=== PATIENT | female | born 1985 | race Caucasian/White ===

== ENCOUNTER 2022-05-31 16:00 | Emergency (ER) | payer OTHER, SELFPAY ==
[2022-05-31] VITALS (7 sets, daily range): BP systolic 160–191; BP diastolic 71–99; PULSE 89–107; RESP 14–22; TEMP 36.8; O2SAT 96–98; BMI 37.5
--- NOTE | ~2022-05-31 | XR_ITS ---
EXAMINATION: XR CHEST CLINICAL INFORMATION: Chest pain COMPARISON: None TECHNIQUE: 2 views of the chest were obtained. FINDINGS: The lungs are well expanded. There is no focal consolidation, edema, or effusion. No pneumothorax. The cardiomediastinal silhouette is within normal limits. No acute osseous abnormality. XR/XR chest 2V IMPRESSION: Clear lungs.
--- NOTE | 2022-05-31 16:05 | ED.GENADULT ---
HPI - General Adult General Chief complaint: Arrhythmia/Palpitations <LUIS Pickett - Last Filed: 05/31/22 17:29> Stated complaint: chest tightness <LUIS Pickett - Last Filed: 05/31/22 17:29> Time Seen by Provider: 05/31/22 16:04 <LUIS Pickett - Last Filed: 05/31/22 17:29> Source: patient and EMS <LUIS Pickett - Last Filed: 05/31/22 17:29> Mode of arrival: EMS <LUIS Pickett - Last Filed: 05/31/22 17:29> Limitations: no limitations <LUIS Pickett - Last Filed: 05/31/22 17:29> History of Present Illness HPI narrative: Patient is a 37 year old assigned female at with a history of anxiety and HTN presenting to the emergency department today with chest tightness. Patient states that she has had intermittent chest tightness and palpitations over the last few days and the episode today caused her to come in. Patient denies any dizziness, lightheadedness, abdominal pain, nausea, vomiting, fever, chills, blurry vision, double vision, loss of vision, difficulty breathing, shortness of breath, back pain, night sweats, pain with urination, increased urinary frequency, increased urinary urgency, blood in her urine or stool, syncope or a near syncopal episode, recent trauma or falls, bowel incontinence, bladder incontinence, bowel retention, bladder retention, or any other complaints at this time. <LUIS Pickett - Last Filed: 05/31/22 17:29> Severity: mild <LUIS Pickett - Last Filed: 05/31/22 17:29> Severity scale (1-10): 4 <LUIS Pickett - Last Filed: 05/31/22 17:29> Pain Consistency: intermittent <LUIS Pickett - Last Filed: 05/31/22 17:29> Relieving factors: none <LUIS Pickett - Last Filed: 05/31/22 17:29> Exacerbating factors: none <LUIS Pickett Last Filed: 05/31/22 17:29> Associated symptoms: chest pain <LUIS Pickett - Last Filed: 05/31/22 17:29> Treatments prior to arrival: none <LUIS Pickett Last Filed: 05/31/22 17:29> Related Data Home medications: Previous Rx's Medication Instructions Recorded ketorolac 10 mg tablet 10 mg PO TID PRN pain 5 days #15 05/31/22 tabs lorazepam 1 mg tablet (Ativan) 1 mg PO DAILY PRN anxiety #8 tabs 05/31/22 <LUIS Pickett - Last Filed: 05/31/22 17:29> Allergies/adverse reactions: Allergies Allergy/AdvReac Type Severity Reaction Status Date / Time sulfamethoxazole Allergy Unknown ITCHING Unverified 01/22/20 18:01 [From BACTRIM] trimethoprim [From BACTRIM] Allergy Unknown ITCHING Unverified 01/22/20 18:01 <LUIS Pickett Last Filed: 05/31/22 17:29> Review of Systems Constitutional: Constitutional: Reports no additional constitutional complaints, Denies chills, Denies fever(s) and Denies night sweats <LUIS Pickett Last Filed: 05/31/22 17:29> Eyes: Eyes: Reports no additional eye complaints, Denies blurry vision, Denies change in vision, Denies diplopia, Denies eye discharge, Denies loss of vision and Denies eye pain <LUIS Pickett Last Filed: 05/31/22 17:29> ENT: Denies dizziness <LUIS Pickett Last Filed: 05/31/22 17:29> Cardiovascular: Cardiovascular: Reports no additional cardiovascular complaints, Reports chest pain, Denies lightheadedness, Denies Loss of Consciousness, Reports palpitations and Denies dyspnea <LUIS Pickett Last Filed: 05/31/22 17:29> Respiratory: Respiratory: Reports no additional respiratory complaints and Denies dyspnea <LUIS Pickett Last Filed: 05/31/22 17:29> Gastrointestinal: Gastrointestinal: Reports no additional gastrointestinal complaints, Denies abdominal pain, Denies melena, Denies hematochezia, Denies change in bowel habits and Denies change in stool character <LUIS Pickett Last Filed: 01/25/23 17:29> Genitourinary: Genitourinary: Denies hematuria, Denies urinary frequency, Denies dysuria, Denies urinary incontinence, Denies urinary hesitancy and Denies urinary urgency <LUIS Pickett - Last Filed: 05/31/22 17:29> Musculoskeletal: Musculoskeletal: Reports no additional musculoskeletal complaints, Denies numbness and Denies tingling <LUIS Pickett - Last Filed: 05/31/22 17:29> Neurologic: Denies dizziness, Denies loss of vision, Denies numbness and Denies tingling <LUIS Pickett - Last Filed: 05/31/22 17:29> Psychiatric: Psychiatric: Reports no additional psychiatric complaints <LUIS Pickett - Last Filed: 05/31/22 17:29> Endocrine: Endocrine: Reports no additional endocrine complaints and Reports palpitations <LUIS Pickett - Last Filed: 05/31/22 17:29> Hematologic/Lymphatic: Hematologic/Lymphatic: Reports no additional hematologic/lymphatic complaints <LUIS Pickett - Last Filed: 05/31/22 17:29> Allergic/Immunologic: Allergic/Immunologic: Reports no additional allergic/immunologic complaints <LUIS Pickett - Last Filed: 05/31/22 17:29> [facility] Past Medical History Attestation statement: The following information was validated with the patient. <LUIS Pickett - Last Filed: 05/31/22 17:29> Source: old records reviewed and nursing notes reviewed <LUIS Pickett - Last Filed: 05/31/22 17:29> Social History Social History: Social History Advance Directives: No Advance Directives Information Provided: No <LUIS Pickett - Last Filed: 05/31/22 17:29> Physical Exam ED Vital Signs: Vital Signs - 24 hr 05/31/22 16:25 05/31/22 16:44 05/31/22 18:09 Temperature 98.2 F 98.2 F 98.2 F Pulse Rate 106 H 106 H 107 H Respiratory Rate 22 H 22 H 14 Blood Pressure 170/71 H 170/71 H 160/98 H Pulse Oximetry 98 98 97 Oxygen Delivery Method Room Air Room Air Room Air 05/31/22 22:31 05/31/22 23:03 Temperature 98.3 F Pulse Rate 105 H 89 Respiratory Rate 20 18 Blood Pressure 191/99 H 166/82 H Pulse Oximetry 98 96 Oxygen Delivery Method Room Air BMI result Body Mass Index 37.5 <LUIS Pickett Last Filed: 05/31/22 17:29> Vital Signs - 24 hr 05/31/22 16:25 05/31/22 16:44 05/31/22 18:09 Temperature 98.2 F 98.2 F 98.2 F Pulse Rate 106 H 106 H 107 H Respiratory Rate 22 H 22 H 14 Blood Pressure 170/71 H 170/71 H 160/98 H Pulse Oximetry 98 98 97 Oxygen Delivery Method Room Air Room Air Room Air 05/31/22 22:31 05/31/22 23:03 Temperature 98.3 F Pulse Rate 105 H 89 Respiratory Rate 20 18 Blood Pressure 191/99 H 166/82 H Pulse Oximetry 98 96 Oxygen Delivery Method Room Air BMI result Body Mass Index 37.5 <LUIS Cintron - Last Filed: 05/31/22 23:34> Const General: cooperative, no acute distress, alert and awake <LUIS Pickett - Last Filed: 05/31/22 17:29> Nutritional Appearance: well nourished <LUIS Pickett Last Filed: 05/31/22 17:29> Orientation/consciousness: patient oriented x3 <LUIS Pickett Last Filed: 05/31/22 17:29> Limitations: no limitations <LUIS Pickett Last Filed: 05/31/22 17:29> HENMT Head: Yes normal to inspection and Yes atraumatic <LUIS Pickett Last Filed: 05/31/22 17:29> Ears: hearing grossly normal bilaterally and external ears normal <LUIS Pickett Last Filed: 05/31/22 17:29> General nose exam: Normal external nose present, no nasal discharge noted and no epistaxis <LUIS Pickett Last Filed: 05/31/22 17:29> Face and sinus: Yes normal facial exam, No abrasion and No laceration <LUIS Pickett Last Filed: 05/31/22 17:29> Mouth: Normal oral and palatal mucosa present, no drooling and no muffled voice <Kalie Hauserbouchra PA - Last Filed: 05/31/22 17:29> Eyes General: appearance normal, both eyes and all related structures <Kalie Mendoza PA - Last Filed: 05/31/22 17:29> Periorbital: periorbital findings normal <Kalie Hauserbouchra PA - Last Filed: 05/31/22 17:29> Eyelids: Yes eyelids normal <Kalie Hauserbouchra PA - Last Filed: 05/31/22 17:29> Conjunctivae: conjunctivae normal <Kalie Hauserbouchra PA - Last Filed: 05/31/22 17:29> Pupils: Equal, round and reactive pupils present <Kaliejeannine Hauserbouchra PA - Last Filed: 05/31/22 17:29> EOM: EOMs intact bilaterally <Kaliejeannine Hauserbouchra PA - Last Filed: 05/31/22 17:29> Neck Neck: Yes normal visual inspection, Yes full ROM and Yes no lymphadenopathy <Kalie Hauserbouchra PA - Last Filed: 05/31/22 17:29> Chest Chest palpation & inspection: normal inspection of the chest <Kalie Reji PA - Last Filed: 05/31/22 17:29> Resp Effort & Inspection: normal respiratory effort and able to speak in complete sentences <Kaliejeannine Hauserbouchra PA - Last Filed: 05/31/22 17:29> Auscultation: clear to auscultation bilaterally <Kalie Reji PA - Last Filed: 05/31/22 17:29> Cardio Rate: regular rate <Kaliejeannine Hauserbouchra PA - Last Filed: 05/31/22 17:29> Rhythm: regular rhythm <Kalie Hauserbouchra PA - Last Filed: 05/31/22 17:29> GI Inspection: Yes normal to inspection <Kalie Reji PA - Last Filed: 05/31/22 17:29> Neuro General: patient oriented x3 and moves all extremities <Kalie Reji PA - Last Filed: 05/31/22 17:29> Cranial nerves: Yes Equal, round and reactive pupils present <Kalie Reji PA - Last Filed: 05/31/22 17:29> Cognition (Neuro): normal cognition <Kalie MendozaLUIS - Last Filed: 05/31/22 17:29> Motor exam (neuro): 5/5 motor strength present throughout <Kalie MendozaLUIS - Last Filed: 05/31/22 17:29> Sensory Exam: Normal double simultaneous stimulation for sensation <Kalie MendozaLUIS - Last Filed: 05/31/22 17:29> Coordination: [id number] test normal <Kalie HauserLUIS shook - Last Filed: 05/31/22 17:29> Extrem General: Yes normal to inspection, Yes full ROM and Yes capillary refill normal <Kalie MendozaLUIS - Last Filed: 05/31/22 17:29> Psych Appearance: grossly normal <Kalie HauserLUIS shook - Last Filed: 05/31/22 17:29> Mental Status: mental status grossly normal <Kalie HauserLUIS shook - Last Filed: 05/31/22 17:29> Affect: normal affect <Kaliejeannine HauserLUIS shook - Last Filed: 05/31/22 17:29> Attitude: cooperative <Kalie HauserLUIS shook - Last Filed: 05/31/22 17:29> Thought process: Normal thought process present <Kalie MendozaLUIS shook - Last Filed: 05/31/22 17:29> Thought content: Normal thought content present <Kalie HauserLUIS shook - Last Filed: 05/31/22 17:29> Insight: Good insight present (Psych) <Kalie MendozaLUIS shook - Last Filed: 05/31/22 17:29> Course Reevaluation(s) Reevaluation #1: CBC with no acute findings. Chemistry with no acute electrolyte abnormalities requiring intervention, troponin negative, EKG nonischemic it did show sinus tachycardia likely secondary to anxiety. UA without infection. COVID negative. Chest x-ray unremarkable. Patient consistently tachycardic will obtain D-dimer to rule out PE. <LUIS Cintron - Last Filed: 05/31/22 23:34> Time: 20:00 <LUIS Cintron - Last Filed: 05/31/22 23:34> Reevaluation #2: D-dimer 154, unlikely PE. I went to go speak to patient she tells me that she has been having increased anxiety lately, she tells me she is worried because she has not seen PCP for a while. Patient that she has never really been an anxious person but this past week she has been feeling anxious. Patient also reports that she has been belching a lot recently so she is not sure if this is really chest pain or if she is having some GI discomfort will give GI cocktail. <LUIS Cintron - Last Filed: 05/31/22 23:34> Time: 21:12 <LUIS Cintron - Last Filed: 05/31/22 23:34> Reevaluation #3: Patient feeling better heart rate now 88 bpm pressure improved 166/82. After Ativan patient tells me her symptoms subsided. I suspect this is primarily anxiety. I did discuss initiation of blood pressure meds with patient and with my attending, patient would like to wait to initiate blood pressure medications until she meets with the primary care provider, and my attending also recommends having her meet with a PCP and not initiating blood pressure medications at this time. Blood pressure and heart rate were likely elevated secondary to anxiety, patient does not or she has been feeling more anxious than usual. At this time patient will be discharged home advised to return with any new or worsening symptoms. Educated patient on diagnosis and treatment plan, answered all question, patient verbalizes understanding. At this time patient will be discharged home, advised to return with new or worsening symptoms. Educated on worrisome signs and symptoms and when to return. At this time I feel comfortable discharge home. <LUIS Cintron - Last Filed: 05/31/22 23:34> Time: 23:33 <LUIS Cintron - Last Filed: 05/31/22 23:34> Medications Administered Discontinued Medications Generic Name Dose Route Start Last Admin Trade Name Freq PRN Reason Stop Dose Admin Al Hydroxide/Mg Hydroxide 30 ml 05/31/22 21:20 05/31/22 22:29 Magnesium Hydrox/Alum Hydrox 30 Ml Oral.Susp PO 05/31/22 21:21 30 ml ONCE ONE Administration Belladonna Alkaloids/Phenobarbital 10 ml 05/31/22 21:20 05/31/22 22:30 Phenobarb/Hyoscy/Atropine/Scop 10 Ml Elixir PO 05/31/22 21:21 10 ml ONCE ONE Administration Ketorolac Tromethamine 30 mg 05/31/22 21:20 05/31/22 22:25 Ketorolac Tromethamine 15 Mg/Ml Vial IM 05/31/22 21:21 Not Given ONCE ONE Lorazepam 1 mg 05/31/22 21:20 05/31/22 22:29 Lorazepam 1 Mg Tablet PO 05/31/22 21:21 1 mg ONCE ONE Administration <LUIS Pickett - Last Filed: 05/31/22 17:29> Medications Administered Discontinued Medications Generic Name Dose Route Start Last Admin Trade Name Nimo PRN Reason Stop Dose Admin Al Hydroxide/Mg Hydroxide 30 ml 05/31/22 21:20 05/31/22 22:29 Magnesium Hydrox/Alum Hydrox 30 Ml Oral.Susp PO 05/31/22 21:21 30 ml ONCE ONE Administration Belladonna Alkaloids/Phenobarbital 10 ml 05/31/22 21:20 05/31/22 22:30 Phenobarb/Hyoscy/Atropine/Scop 10 Ml Elixir PO 05/31/22 21:21 10 ml ONCE ONE Administration Ketorolac Tromethamine 30 mg 05/31/22 21:20 05/31/22 22:25 Ketorolac Tromethamine 15 Mg/Ml Vial IM 05/31/22 21:21 Not Given ONCE ONE Lorazepam 1 mg 05/31/22 21:20 05/31/22 22:29 Lorazepam 1 Mg Tablet PO 05/31/22 21:21 1 mg ONCE ONE Administration <LUIS Cintron - Last Filed: 05/31/22 23:34> Medical Decision Making Medical Decision Making MDM Narrative: Patient is a 37 year old assigned female at with a history of HTN presenting to the emergency department today with intermittent palpitations and chest tightness. Patient's physical exam was unremarkable. Patient's blood work is pending. Patient's EKG was unremarkable. Patient's chest x-ray showed no acute process. I explained my physical exam findings as well as all test results to the patient. I answered all questions asked by the patient. Patient's clinical presentation is most consistent with anxiety vs. palpitations. Plan is to discharge the patient as long as the work up is negative. <LUIS Pickett - Last Filed: 05/31/22 17:29> Differential Diagnosis Differential Diagnoses: The differential diagnosis associated with the presentation includes <LUIS Pickett - Last Filed: 05/31/22 17:29> anxiety, chest pain, palpitations <LUIS Pickett - Last Filed: 05/31/22 17:29> Lab Data Result Diagrams: 05/31/22 17:21 05/31/22 17:21 <LUIS Pickett - Last Filed: 05/31/22 17:29> Labs: Lab Results 05/31/22 05/31/22 05/31/22 Range/Units 17:21 17:21 17:21 WBC 9.2 (4.8-10.8) X10*3/uL RBC 4.50 (4.20-5.50) X10*6/uL Hgb 13.4 (12.0-16.0) g/dl Hct 39.8 (37.0-47.0) % MCV 88.4 (80.0-98.0) fL MCH 29.8 (27.0-33.0) pg MCHC 33.7 (31.0-35.0) g/dl RDW 12.3 (11.0-16.0) % Plt Count 336 (160-400) X10*3/uL MPV 9.5 (9.4-12.3) fL Immature Gran % (Auto) 0.2 (0.0-0.4) % Neut % (Auto) 75.4 H (45-73) % Lymph % (Auto) 18.1 L (20-40) % [place] % (Auto) 5.2 (2-11) % Eos % (Auto) 0.8 (0-4) % Baso % (Auto) 0.3 (0-2) % Lymph # (Auto) 1.7 (1.2-4.9) X10*3/uL [place] # (Auto) 0.5 (0.1-1.2) X10*3/uL Eos # (Auto) 0.1 (0.0-0.4) X10*3/uL Baso # (Auto) 0.0 (0.0-0.2) X10*3/uL Abs Immat Gran (auto) 0.02 (0.00-0.03) X10*3/uL Absolute Neuts (auto) 6.9 (2.0-8.3) x10*3/uL Absolute Nucleated RBC 0.000 (0.0-0.012) X10*3/uL Nucleated RBC % (auto) 0.0 (0.0-0.2) /100WBC D-Dimer High Sensitivty NG/ML Sodium 137 (135-145) mmol/L Potassium 3.6 (3.3-5.1) mmol/L Chloride 101 (96-108) mmol/L Carbon Dioxide 24 (22-29) mmol/L Anion Gap 17 (12-20) BUN 9 (9-16) mg/dL Creatinine 0.78 (0.5-1.4) mg/dL Estim Creat Clear Calc 123.0 Estimated GFR > 60 Random Glucose 110 (60-115) mg/dL Calcium 9.7 (8.4-10.2) mg/dL Magnesium 2.0 (1.6-2.6) mg/dL Total Bilirubin 0.4 (0.0-1.0) mg/dL AST 16 (5-31) U/L ALT 21 (0-31) U/L Alkaline Phosphatase 100 (39-117) U/L Troponin I High Sens < 3.5 (<3.5-17.0) ng/L Total Protein 7.2 (6.5-8.0) g/dL Albumin 4.4 (3.5-5.0) g/dL TSH (0.32-4.0) uIU/mL Urine Color Urine Appearance Urine pH (5.0-9.0) Ur Specific [place] (1.005-1.025) Urine Protein (Neg-Trace) mg/dL Urine Glucose (UA) (Negative) mg/dL Urine Ketones (Negative) mg/dL Urine Blood (Negative) Urine Nitrite (Negative) Ur Leukocyte Esterase (Negative) Urine RBC (0-2) /HPF Urine WBC (0-5) /HPF Ur Squamous Epith Cells (0-2) /HPF Urine Bacteria (None Seen) Hyaline Casts (0-2) /LPF COVID-19 (MICHELE) (Negative) COVID-19 Clin Com Influenza Type A (MARY) (Negative) Influenza Type B (MARY) (Negative) Influenza A & B Note 05/31/22 05/31/22 05/31/22 Range/Units 17:21 17:21 17:21 WBC (4.8-10.8) X10*3/uL RBC (4.20-5.50) X10*6/uL Hgb (12.0-16.0) g/dl Hct (37.0-47.0) % MCV (80.0-98.0) fL MCH (27.0-33.0) pg MCHC (31.0-35.0) g/dl RDW (11.0-16.0) % Plt Count (160-400) X10*3/uL MPV (9.4-12.3) fL Immature Gran % (Auto) (0.0-0.4) % Neut % (Auto) (45-73) % Lymph % (Auto) (20-40) % [place] % (Auto) (2-11) % Eos % (Auto) (0-4) % Baso % (Auto) (0-2) % Lymph # (Auto) (1.2-4.9) X10*3/uL [place] # (Auto) (0.1-1.2) X10*3/uL Eos # (Auto) (0.0-0.4) X10*3/uL Baso # (Auto) (0.0-0.2) X10*3/uL Abs Immat Gran (auto) (0.00-0.03) X10*3/uL Absolute Neuts (auto) (2.0-8.3) x10*3/uL Absolute Nucleated RBC (0.0-0.012) X10*3/uL Nucleated RBC % (auto) (0.0-0.2) /100WBC D-Dimer High Sensitivty NG/ML Sodium (135-145) mmol/L Potassium (3.3-5.1) mmol/L Chloride (96-108) mmol/L Carbon Dioxide (22-29) mmol/L Anion Gap (12-20) BUN (9-16) mg/dL Creatinine (0.5-1.4) mg/dL Estim Creat Clear Calc Estimated GFR Random Glucose (60-115) mg/dL Calcium (8.4-10.2) mg/dL Magnesium (1.6-2.6) mg/dL Total Bilirubin (0.0-1.0) mg/dL AST (5-31) U/L ALT (0-31) U/L Alkaline Phosphatase (39-117) U/L Troponin I High Sens (<3.5-17.0) ng/L Total Protein (6.5-8.0) g/dL Albumin (3.5-5.0) g/dL TSH 2.28 (0.32-4.0) uIU/mL Urine Color Urine Appearance Urine pH (5.0-9.0) Ur Specific [place] (1.005-1.025) Urine Protein (Neg-Trace) mg/dL Urine Glucose (UA) (Negative) mg/dL Urine Ketones (Negative) mg/dL Urine Blood (Negative) Urine Nitrite (Negative) Ur Leukocyte Esterase (Negative) Urine RBC (0-2) /HPF Urine WBC (0-5) /HPF Ur Squamous Epith Cells (0-2) /HPF Urine Bacteria (None Seen) Hyaline Casts (0-2) /LPF COVID-19 (MICHELE) Negative (Negative) COVID-19 Clin Com See Note Influenza Type A (MARY) Negative (Negative) Influenza Type B (MARY) Negative (Negative) Influenza A & B Note See Note 05/31/22 05/31/22 Range/Units 17:21 19:46 WBC (4.8-10.8) X10*3/uL RBC (4.20-5.50) X10*6/uL Hgb (12.0-16.0) g/dl Hct (37.0-47.0) % MCV (80.0-98.0) fL MCH (27.0-33.0) pg MCHC (31.0-35.0) g/dl RDW (11.0-16.0) % Plt Count (160-400) X10*3/uL MPV (9.4-12.3) fL Immature Gran % (Auto) (0.0-0.4) % Neut % (Auto) (45-73) % Lymph % (Auto) (20-40) % [place] % (Auto) (2-11) % Eos % (Auto) (0-4) % Baso % (Auto) (0-2) % Lymph # (Auto) (1.2-4.9) X10*3/uL [place] # (Auto) (0.1-1.2) X10*3/uL Eos # (Auto) (0.0-0.4) X10*3/uL Baso # (Auto) (0.0-0.2) X10*3/uL Abs Immat Gran (auto) (0.00-0.03) X10*3/uL Absolute Neuts (auto) (2.0-8.3) x10*3/uL Absolute Nucleated RBC (0.0-0.012) X10*3/uL Nucleated RBC % (auto) (0.0-0.2) /100WBC D-Dimer High Sensitivty 154 NG/ML Sodium (135-145) mmol/L Potassium (3.3-5.1) mmol/L Chloride (96-108) mmol/L Carbon Dioxide (22-29) mmol/L Anion Gap (12-20) BUN (9-16) mg/dL Creatinine (0.5-1.4) mg/dL Estim Creat Clear Calc Estimated GFR Random Glucose (60-115) mg/dL Calcium (8.4-10.2) mg/dL Magnesium (1.6-2.6) mg/dL Total Bilirubin (0.0-1.0) mg/dL AST (5-31) U/L ALT (0-31) U/L Alkaline Phosphatase (39-117) U/L Troponin I High Sens (<3.5-17.0) ng/L Total Protein (6.5-8.0) g/dL Albumin (3.5-5.0) g/dL TSH (0.32-4.0) uIU/mL Urine Color Yellow Urine Appearance Clear Urine pH 7.5 (5.0-9.0) Ur Specific [place] <= 1.005 (1.005-1.025) Urine Protein Negative (Neg-Trace) mg/dL Urine Glucose (UA) Negative (Negative) mg/dL Urine Ketones Negative (Negative) mg/dL Urine Blood Negative (Negative) Urine Nitrite Negative (Negative) Ur Leukocyte Esterase Small (1+) H (Negative) Urine RBC 0-2 (0-2) /HPF Urine WBC 0-5 (0-5) /HPF Ur Squamous Epith Cells 0-2 (0-2) /HPF Urine Bacteria None Seen (None Seen) Hyaline Casts 0-2 (0-2) /LPF COVID-19 (MICHELE) (Negative) COVID-19 Clin Com Influenza Type A (MARY) (Negative) Influenza Type B (MARY) (Negative) Influenza A & B Note <LUIS Pickett - Last Filed: 05/31/22 17:29> Lab Results 05/31/22 05/31/22 05/31/22 Range/Units 17:21 17:21 17:21 WBC 9.2 (4.8-10.8) X10*3/uL RBC 4.50 (4.20-5.50) X10*6/uL Hgb 13.4 (12.0-16.0) g/dl Hct 39.8 (37.0-47.0) % MCV 88.4 (80.0-98.0) fL MCH 29.8 (27.0-33.0) pg MCHC 33.7 (31.0-35.0) g/dl RDW 12.3 (11.0-16.0) % Plt Count 336 (160-400) X10*3/uL MPV 9.5 (9.4-12.3) fL Immature Gran % (Auto) 0.2 (0.0-0.4) % Neut % (Auto) 75.4 H (45-73) % Lymph % (Auto) 18.1 L (20-40) % [place] % (Auto) 5.2 (2-11) % Eos % (Auto) 0.8 (0-4) % Baso % (Auto) 0.3 (0-2) % Lymph # (Auto) 1.7 (1.2-4.9) X10*3/uL [place] # (Auto) 0.5 (0.1-1.2) X10*3/uL Eos # (Auto) 0.1 (0.0-0.4) X10*3/uL Baso # (Auto) 0.0 (0.0-0.2) X10*3/uL Abs Immat Gran (auto) 0.02 (0.00-0.03) X10*3/uL Absolute Neuts (auto) 6.9 (2.0-8.3) x10*3/uL Absolute Nucleated RBC 0.000 (0.0-0.012) X10*3/uL Nucleated RBC % (auto) 0.0 (0.0-0.2) /100WBC D-Dimer High Sensitivty NG/ML Sodium 137 (135-145) mmol/L Potassium 3.6 (3.3-5.1) mmol/L Chloride 101 (96-108) mmol/L Carbon Dioxide 24 (22-29) mmol/L Anion Gap 17 (12-20) BUN 9 (9-16) mg/dL Creatinine 0.78 (0.5-1.4) mg/dL Estim Creat Clear Calc 123.0 Estimated GFR > 60 Random Glucose 110 (60-115) mg/dL Calcium 9.7 (8.4-10.2) mg/dL Magnesium 2.0 (1.6-2.6) mg/dL Total Bilirubin 0.4 (0.0-1.0) mg/dL AST 16 (5-31) U/L ALT 21 (0-31) U/L Alkaline Phosphatase 100 (39-117) U/L Troponin I High Sens < 3.5 (<3.5-17.0) ng/L Total Protein 7.2 (6.5-8.0) g/dL Albumin 4.4 (3.5-5.0) g/dL TSH (0.32-4.0) uIU/mL Urine Color Urine Appearance Urine pH (5.0-9.0) Ur Specific [place] (1.005-1.025) Urine Protein (Neg-Trace) mg/dL Urine Glucose (UA) (Negative) mg/dL Urine Ketones (Negative) mg/dL Urine Blood (Negative) Urine Nitrite (Negative) Ur Leukocyte Esterase (Negative) Urine RBC (0-2) /HPF Urine WBC (0-5) /HPF Ur Squamous Epith Cells (0-2) /HPF Urine Bacteria (None Seen) Hyaline Casts (0-2) /LPF COVID-19 (MICHELE) (Negative) COVID-19 Clin Com Influenza Type A (MARY) (Negative) Influenza Type B (MARY) (Negative) Influenza A & B Note 05/31/22 05/31/22 05/31/22 Range/Units 17:21 17:21 17:21 WBC (4.8-10.8) X10*3/uL RBC (4.20-5.50) X10*6/uL Hgb (12.0-16.0) g/dl Hct (37.0-47.0) % MCV (80.0-98.0) fL MCH (27.0-33.0) pg MCHC (31.0-35.0) g/dl RDW (11.0-16.0) % Plt Count (160-400) X10*3/uL MPV (9.4-12.3) fL Immature Gran % (Auto) (0.0-0.4) % Neut % (Auto) (45-73) % Lymph % (Auto) (20-40) % [place] % (Auto) (2-11) % Eos % (Auto) (0-4) % Baso % (Auto) (0-2) % Lymph # (Auto) (1.2-4.9) X10*3/uL [place] # (Auto) (0.1-1.2) X10*3/uL Eos # (Auto) (0.0-0.4) X10*3/uL Baso # (Auto) (0.0-0.2) X10*3/uL Abs Immat Gran (auto) (0.00-0.03) X10*3/uL Absolute Neuts (auto) (2.0-8.3) x10*3/uL Absolute Nucleated RBC (0.0-0.012) X10*3/uL Nucleated RBC % (auto) (0.0-0.2) /100WBC D-Dimer High Sensitivty NG/ML Sodium (135-145) mmol/L Potassium (3.3-5.1) mmol/L Chloride (96-108) mmol/L Carbon Dioxide (22-29) mmol/L Anion Gap (12-20) BUN (9-16) mg/dL Creatinine (0.5-1.4) mg/dL Estim Creat Clear Calc Estimated GFR Random Glucose (60-115) mg/dL Calcium (8.4-10.2) mg/dL Magnesium (1.6-2.6) mg/dL Total Bilirubin (0.0-1.0) mg/dL AST (5-31) U/L ALT (0-31) U/L Alkaline Phosphatase (39-117) U/L Troponin I High Sens (<3.5-17.0) ng/L Total Protein (6.5-8.0) g/dL Albumin (3.5-5.0) g/dL TSH 2.28 (0.32-4.0) uIU/mL Urine Color Urine Appearance Urine pH (5.0-9.0) Ur Specific [place] (1.005-1.025) Urine Protein (Neg-Trace) mg/dL Urine Glucose (UA) (Negative) mg/dL Urine Ketones (Negative) mg/dL Urine Blood (Negative) Urine Nitrite (Negative) Ur Leukocyte Esterase (Negative) Urine RBC (0-2) /HPF Urine WBC (0-5) /HPF Ur Squamous Epith Cells (0-2) /HPF Urine Bacteria (None Seen) Hyaline Casts (0-2) /LPF COVID-19 (MICHELE) Negative (Negative) COVID-19 Clin Com See Note Influenza Type A (MARY) Negative (Negative) Influenza Type B (MARY) Negative (Negative) Influenza A & B Note See Note 05/31/22 05/31/22 Range/Units 17:21 19:46 WBC (4.8-10.8) X10*3/uL RBC (4.20-5.50) X10*6/uL Hgb (12.0-16.0) g/dl Hct (37.0-47.0) % MCV (80.0-98.0) fL MCH (27.0-33.0) pg MCHC (31.0-35.0) g/dl RDW (11.0-16.0) % Plt Count (160-400) X10*3/uL MPV (9.4-12.3) fL Immature Gran % (Auto) (0.0-0.4) % Neut % (Auto) (45-73) % Lymph % (Auto) (20-40) % [place] % (Auto) (2-11) % Eos % (Auto) (0-4) % Baso % (Auto) (0-2) % Lymph # (Auto) (1.2-4.9) X10*3/uL [place] # (Auto) (0.1-1.2) X10*3/uL Eos # (Auto) (0.0-0.4) X10*3/uL Baso # (Auto) (0.0-0.2) X10*3/uL Abs Immat Gran (auto) (0.00-0.03) X10*3/uL Absolute Neuts (auto) (2.0-8.3) x10*3/uL Absolute Nucleated RBC (0.0-0.012) X10*3/uL Nucleated RBC % (auto) (0.0-0.2) /100WBC D-Dimer High Sensitivty 154 NG/ML Sodium (135-145) mmol/L Potassium (3.3-5.1) mmol/L Chloride (96-108) mmol/L Carbon Dioxide (22-29) mmol/L Anion Gap (12-20) BUN (9-16) mg/dL Creatinine (0.5-1.4) mg/dL Estim Creat Clear Calc Estimated GFR Random Glucose (60-115) mg/dL Calcium (8.4-10.2) mg/dL Magnesium (1.6-2.6) mg/dL Total Bilirubin (0.0-1.0) mg/dL AST (5-31) U/L ALT (0-31) U/L Alkaline Phosphatase (39-117) U/L Troponin I High Sens (<3.5-17.0) ng/L Total Protein (6.5-8.0) g/dL Albumin (3.5-5.0) g/dL TSH (0.32-4.0) uIU/mL Urine Color Yellow Urine Appearance Clear Urine pH 7.5 (5.0-9.0) Ur Specific [place] <= 1.005 (1.005-1.025) Urine Protein Negative (Neg-Trace) mg/dL Urine Glucose (UA) Negative (Negative) mg/dL Urine Ketones Negative (Negative) mg/dL Urine Blood Negative (Negative) Urine Nitrite Negative (Negative) Ur Leukocyte Esterase Small (1+) H (Negative) Urine RBC 0-2 (0-2) /HPF Urine WBC 0-5 (0-5) /HPF Ur Squamous Epith Cells 0-2 (0-2) /HPF Urine Bacteria None Seen (None Seen) Hyaline Casts 0-2 (0-2) /LPF COVID-19 (MICHELE) (Negative) COVID-19 Clin Com Influenza Type A (MARY) (Negative) Influenza Type B (MARY) (Negative) Influenza A & B Note <LUIS Cintron Last Filed: 05/31/22 23:34> Independent Interpretation I performed an independent interpretation of an: EKG <LUIS Pickett Last Filed: 05/31/22 17:29> Interpretation: Vent. Rate: 109 BPM ? ? Atrial Rate: 109 BPM P-R Int: 174 ms? QRS Dur: 094 ms QT Int: 344 ms ? ? ? P-R-T Axes: 037 014 019 degrees QTc Int: 463 ms ? Sinus tachycardia Otherwise normal ECG No previous ECGs available ? DD/ [id number] <LUIS Pickett Last Filed: 05/31/22 17:29> Radiology Impression Radiologist Impression: My interpretation is in agreement with the radiologist's impression of this imaging study. EXAMINATION: XR CHEST CLINICAL INFORMATION: Chest pain COMPARISON: None TECHNIQUE: 2 views of the chest were obtained. FINDINGS: The lungs are well expanded. There is no focal consolidation, edema, or effusion. No pneumothorax. The cardiomediastinal silhouette is within normal limits. No acute osseous abnormality. XR/XR chest 2V IMPRESSION: Clear lungs. Dictated By: Lacho Sahni MD Signed By: Electronically signed by Lacho Sahni MD 05/31/22 [id number] <LUIS Pickett Last Filed: 05/31/22 17:29> Independent Historian Clinical information obtained from an independent historian. History obtained from or confirmed by: EMS <LUIS Pickett Last Filed: 05/31/22 17:29> Critical Care Time Critical Care Time Critical Care Time: No <LUIS Cintron - Last Filed: 05/31/22 23:34> Discharge Plan Discharge Clinical Impression: Palpitations, Anxiety, High blood pressure <LUIS Pickett Last Filed: 05/31/22 17:29> Patient Disposition: Home, Self-Care <LUIS Pickett Last Filed: 05/31/22 17:29> Instructions: Heart Palpitations (DC) <LUIS Pickett Last Filed: 05/31/22 17:29> Additional Instructions: Follow up with your primary care provider. Return to the emergency department immediately if your symptoms worsen or if you develop any dizziness, shortness of breath, difficulty breathing, chest pain, blurry vision, loss of vision, nausea, vomiting, abdominal pain, fever, chills, back pain, or any other complaints. Toradol has been sent to your pharmacy, you tolerated this well in the department. Please take this as prescribed do not take this with ibuprofen, or other NSAIDs, do not mix this with alcohol. Side effects of this medication including increased risk for bleeding and possible kidney injury. Please check your blood pressure Sunday, Sunday, Sunday, write it down and should this with your primary care provider. <LUIS Pickett - Last Filed: 05/31/22 17:29> Prescriptions: New ketorolac 10 mg tablet 10 mg PO TID PRN (Reason: pain) 5 Days Qty: 15 0RF Rx Instructions: Tolerated IM in the department lorazepam [Ativan] 1 mg tablet 1 mg PO DAILY PRN (Reason: anxiety) Qty: 8 0RF <LUIS Pickett Last Filed: 05/31/22 17:29> Referrals: [facility] Cardiovascular Services [Provider Group] - 2 days [facility] Family Medicine [Provider Group] (Call to establish and follow up with a primary care provider. If you already have a primary care provider, please follow up with them. ) [facility] [Provider Group] (Call to establish and follow up with a primary care provider. If you already have a primary care provider, please follow up with them. ) [facility] [Provider Group] (Call to establish and follow up with a primary care provider. If you already have a primary care provider, please follow up with them. ) <LUIS Pickett - Last Filed: 05/31/22 17:29> Stand Alone Forms: Work/School Release <LUIS Pickett - Last Filed: 05/31/22 17:29> Print Language: Faroese <LUIS Pickett - Last Filed: 05/31/22 17:29>
--- NOTE | 2022-05-31 16:17 | ECG_ITS ---
Test Reason : CHEST TIGHTNESS Blood Pressure : / mmHG Vent. Rate : 109 BPM Atrial Rate : 109 BPM P-R Int : 174 ms QRS Dur : 094 ms QT Int : 344 ms P-R-T Axes : 037 014 019 degrees QTc Int : 463 ms Sinus tachycardia Otherwise normal ECG No previous ECGs available Referred By: Kalie Mendoza Electronically Signed By:JUAN CARLOS CARVALHO
[2022-05-31 17:27] LABS: MANUAL DIFF FLAG NO
[2022-05-31 17:31] LABS: Basophils Percent Auto 0.3 % (0-2); Eosinophils Absolute Auto 0.1 X10*3/uL (0.0-0.4); Eosinophils Percent Auto 0.8 % (0-4); Hematocrit 39.8 % (37.0-47.0); Hemoglobin 13.4 g/dl (12.0-16.0); Imm Gran Abs Auto 0.02 X10*3/uL (0.00-0.03); Imm Gran Pct Auto 0.2 % (0.0-0.4); Lymphocytes Absolute Auto 1.7 X10*3/uL (1.2-4.9); Lymphocytes Percent Auto 18.1 % (20-40); Mean Corpuscular HGB Conc 33.7 g/dl (31.0-35.0); Mean Corpuscular Hemoglobin 29.8 pg (27.0-33.0); Mean Corpuscular Volume 88.4 fL (80.0-98.0); Mean Platelet Volume 9.5 fL (9.4-12.3); Monocytes Absolute Auto 0.5 X10*3/uL (0.1-1.2); Monocytes Percent Auto 5.2 % (2-11); Neutrophils Absolute Auto 6.9 x10*3/uL (2.0-8.3); Neutrophils Percent Auto 75.4 % (45-73); Platelet Count 336 X10*3/uL (160-400); Red Cell Distribution Width 12.3 % (11.0-16.0); White Blood Count 9.2 X10*3/uL (4.8-10.8)
[2022-05-31 17:35] LABS: Appearance Urine Clear; Color Urine Yellow; Glucose Urine UA Negative (Negative); Leukocyte Esterase Urine Small (1+) (Negative); Nitrite Urine Negative (Negative); PH 7.5 (5.0-9.0); Specific Gravity - Urine <= 1.005 (1.005-1.025); UMIC TRIGGER UACC YES; Urine Blood Negative (Negative); Urine Ketones Negative (Negative); Urine Protein Negative (Neg-Trace)
[2022-05-31 17:41] LABS: COVID-19 Test Negative (Negative); IDNOW Serial# 55D5AD1C
[2022-05-31 17:47] LABS: IDNOW Serial# 9DB6401D; Influenza A Negative (Negative); Influenza B2 Negative (Negative)
[2022-05-31 17:55] LABS: Alanine Aminotransferase 21 U/L (0-31); Albumin Level 4.4 g/dL (3.5-5.0); Alkaline Phosphatase 100 U/L (39-117); Anion Gap 17 (12-20); Aspartate Amino Transferase 16 U/L (5-31); Bacteria Urine None Seen (None Seen); Bilirubin Total 0.4 mg/dL (0.0-1.0); Blood Urea Nitrogen 9 mg/dL (9-16); Calcium 9.7 mg/dL (8.4-10.2); Carbon Dioxide 24 mmol/L (22-29); Chloride 101 mmol/L (96-108); Estimated Glomerular Filt Rate > 60; Glucose Random 110 mg/dL (60-115); Hyaline Casts Urine 0-2 /LPF (0-2); Potassium 3.6 mmol/L (3.3-5.1); RBC Urine 0-2 /HPF (0-2); Sodium 137 mmol/L (135-145); Squamous Epithelial Cell Urine 0-2 /HPF (0-2); Total Protein 7.2 g/dL (6.5-8.0); UACC Culture Trigger YES; WBC Urine 0-5 /HPF (0-5)
[2022-05-31 18:01] LABS: Troponin-I High Sensitivity < 3.5 ng/L (<3.5-17.0)
[2022-05-31 18:09] LABS: TSH reflex Free T4 2.28 uIU/mL (0.32-4.0)
[2022-05-31 20:21] LABS: D Dimer High Sensitivity 154 NG/ML
[2022-05-31] MEDS: LORazepam 1 MG TABLET PO (22:29)
[2022-05-31] MEDS: Magnesium Hydrox/Alum Hydrox 30 ML ORAL.SUSP PO (22:29)
[2022-05-31] MEDS: PHENobarb/Hyoscy/Atropine/Scop 10 ML ELIXIR PO (22:30)
--- NOTE | 2022-05-31 22:38 | PC.NURSE ---
Pt tearful crying requesting to ask to speak to provider regarding results. Pt medicated per MAR. Provider at pt side providing comfort to pt.
== END 2022-05-31 23:58 | disposition home or self-care (01) ==
PROVIDERS: Physician Assistant; Physician Assistant Medical; Emergency Provider Emergency Medicine
DX: R00.2 Palpitations (principal); F41.9 Anxiety disorder, unspecified; I10 Essential (primary) hypertension; Z20.822 Contact with and (suspected) exposure to COVID-19; R00.0 Tachycardia, unspecified
CPT/HCPCS: 36415; 71046; 80053; 81001; 83735; 84443; 84484; 85025; 85379; 87086; 87502; 87635; 93005; 99283; 99285

== ENCOUNTER → 2022-06-19 08:43 | Outpatient (BNVA) | payer OTHER, SELFPAY | PROVIDERS: PCP Nurse Practitioner Family; Visit Provider Internal Medicine | DX: Z13.89 Encounter for screening for other disorder (principal) ==

== ENCOUNTER 2022-09-15 13:21 | Outpatient (REF) | payer OTHER, SELFPAY | END 2022-09-15 13:22 | disposition home or self-care (01) | LOC: HO.LAB 13:21 | PROVIDERS: Visit Provider Nurse Practitioner Family | DX: L02.91 Cutaneous abscess, unspecified (principal) | CPT/HCPCS: 87070; 87205 ==

== ENCOUNTER 2022-10-11 13:54 | Outpatient (REF) | payer OTHER, SELFPAY ==
--- NOTE | ~2022-10-11 | US_ITS ---
EXAMINATION: US CHEST CLINICAL INFORMATION: Cutaneous abscess upper back COMPARISON: Chest x-ray May 2022 TECHNIQUE: Grayscale and color imaging of the soft tissues of the upper midline back in between the scapula FINDINGS: There is a 2.4 x 2 x 0.2 cm complex subcutaneous fluid collection. This is hypoechoic with some internal echoes. This demonstrates a slightly thickened wall with increased wall vascularity. Appearance is suggestive of a small abscess. US/US chest IMPRESSION: Small subcutaneous abscess measuring 2.4 x 2 x 0.2 cm.
== END 2022-10-11 13:55 | disposition home or self-care (01) ==
LOC: HO.HMGCX 13:54
PROVIDERS: PCP Nurse Practitioner Family; Visit Provider Nurse Practitioner Family
DX: L02.91 Cutaneous abscess, unspecified (principal)
CPT/HCPCS: 76604

== ENCOUNTER → 2022-10-24 08:56 | Outpatient (BNVA) | payer OTHER, SELFPAY | PROVIDERS: PCP Nurse Practitioner Family; Referring Provider Nurse Practitioner Family; Visit Provider Surgery ==

== ENCOUNTER 2022-11-23 09:31 | Day surgery (SDC) | payer OTHER, SELFPAY ==
[2022-11-20 15:05] VITALS: BMI 46.0
--- NOTE | 2022-11-22 09:58 | HO.ANESPROP2 ---
Documented by User: Kirsten Nam NP 11/22/22 09:58 HPI - Anesthesia Eval Consult details Narrative: 37yo F for Excision of Large Mid Back Sabaceous Cyst PMFSH Active Problems Active Problems: All Active Problems (Updated 10/06/22 @ 16:15 by Lottie Trevino CNP) Palpitations (Acute) Abscess (Acute) Oral thrush (Acute) Sebaceous cyst (Acute) Essential hypertension (Acute) Past Medical History Medical History Back abscess Essential hypertension Family History Family History Mother HTN (hypertension) Irregular heart beat Diabetes Father Heart attack Brother Brain cancer Paternal Grandfather Heart disease Paternal Grandmother Breast cancer Surgical History Surgical History (Updated 11/20/22 @ 15:04 by Riya Irwin RN) [place] teeth extracted Social History Social History Housing: House Alcohol intake: current Alcohol intake frequency: a few times a week Alcohol type: beer Patient Tobacco Use Status: Never used Tobacco e-Cigarette/Vaping Use: Never Used service: No Current occupational status: employed 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563 kg Pertinent Lab Results Pertinent Lab Results: Laboratory Tests 05/31/22 05/31/22 17:21 17:21 WBC 9.2 Hgb 13.4 Hct 39.8 Plt Count 336 Sodium 137 Potassium 3.6 Chloride 101 Carbon Dioxide 24 BUN 9 Creatinine 0.78 Narrative Narrative: EKG 05/2022 Vent. Rate : 109 BPM ? ? Atrial Rate : 109 BPM ?? P-R Int : 174 ms? QRS Dur : 094 ms ? ? QT Int : 344 ms ? ? ? P-R-T Axes : 037 014 019 degrees ?? QTc Int : 463 ms ? Sinus tachycardia Otherwise normal ECG No previous ECGs available Assessment and Plan Assessment Anesthesia Assessment: Chart Reviewed Documented by User: Isaias Coleman MD 11/23/22 09:33 [facility] Past Medical History Medical History Back abscess Essential hypertension Family History Family History Mother HTN (hypertension) Irregular heart beat Diabetes Father Heart attack Brother Brain cancer Paternal Grandfather Heart disease Paternal Grandmother Breast cancer Family history of problems with anesthesia: No Surgical History Surgical History (Updated 11/20/22 @ 15:04 by Riya Irwin RN) [place] teeth extracted History of Problems with Anesthesia: No Social History Social History Housing: House Alcohol intake: current Alcohol intake frequency: a few times a week Alcohol type: beer Patient Tobacco Use Status: Never used Tobacco e-Cigarette/Vaping Use: Never Used service: No Current occupational status: employed 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 Cognitive needs: No Hearing needs: No Vision needs: No Meds Allergies Allergy/AdvReac Type Severity Reaction Status Date / Time sulfamethoxazole Allergy Intermediate ITCHING Verified 11/20/22 15:02 [From BACTRIM] trimethoprim [From BACTRIM] Allergy Intermediate ITCHING Verified 11/20/22 15:02 Home Medications Medication Instructions Recorded Confirmed Last Taken Type fluticasone propionate 50 1 spray intranasal DAILY 06/19/22 11/20/22 Unknown History mcg/actuation nasal spray,suspension Exam Airway Mallampati Class: III TM Dist: >3cm Neck ROM: Limited Heart: rrr Lungs: cta Assessment and Plan Assessment Anesthesia Assessment: Anesthesia Plan Discussed Final Anesthetic Review Family History of Problems with Anesthesia: No History of Problems with Anesthesia: No NPO: Yes ASA Class: III Final Preanesthetic Review: No Changes in Pt Med Stat, Meds/Allgs Chart Reviewed, Consent Obtained/Reviewed and Anes Risks/Benef Reviewed Patient Risk: Intermediate Procedure Risk: Low Anesthetic Plan Anesthetic Plan: MAC: and Agree w/ Assess. and Plan Disposition: Standard PACU
--- NOTE | 2022-11-22 10:54 | MHC.SHP ---
Pre-Procedural Eval Section A Date of Service: 11/22/22 The patient is an INPATIENT: No Changes since office visit: No Cold of Flu in the past 2 weeks, No New Medical Problems, No Changes in Medication and No Patient answered all questions The History & Physical has been completed within 30 days and I have reviewed it.: Yes Section B Chief Complaint: Sebaceous cyst Allergies: Allergies Allergy/AdvReac Type Severity Reaction Status Date / Time sulfamethoxazole Allergy Intermediate ITCHING Verified 11/20/22 15:02 [From BACTRIM] trimethoprim [From BACTRIM] Allergy Intermediate ITCHING Verified 11/20/22 15:02 Plan I have reviewed the history and physical and performed a pertinent physical examination on my patient. No changes have occurred unless specified. Time Spent With Patient Time: Total time managing care of this patient today ____ minutes.
[2022-11-23 09:50] VITALS: BP 178/101; PULSE 108; RESP 16; TEMP 37.7; O2SAT 98; BMI 44.6
[2022-11-23 10:00] LABS: UPreg QC Valid YES; Urine Pregnancy NEGATIVE (NEGATIVE)
[2022-11-23 10:07] VITALS: BP 178/99
[2022-11-23] MEDS: Lactated Ringers 1,000 ML 100 ML IVCONT (10:07)
[2022-11-23 11:26] VITALS: BP 133/98; PULSE 101; RESP 14; TEMP 37.2; O2SAT 96
--- NOTE | 2022-11-23 11:36 | W.PM.OPN ---
Operative Note Operative Note Date of Service: 11/23/22 Narrative: Preoperative diagnosis: [] Large sebaceous cyst mid back Postop diagnosis: [] Same Procedure [] excision large sebaceous cyst mid back Surgeon: [] Zeeshan [employer] Lecturer: [] LUIS Cage Type of Anesthesia: [] MAC Indication for surgery: [] Final specimen measured approximately 8 x 4 cm consistent with a very large sebaceous cyst of mid back Findings: [] Patient brought to the operating room, placed on operating table supine position, after adequate level of MAC was induced, patient was placed in right lateral decubitus position. Mid back was prepped and draped in usual sterile fashion the incision site was infiltrated with 0.5% Marcaine/1% lidocaine. A transverse by elliptical incision encompassing all the cyst and its punctum was carried down through skin, subcutaneous tissue, and undermined using Bovie. Specimen sent to pathology with dimensions as described above. Superior and inferior skin flaps were developed using Bovie and wound was irrigated, secured hemostasis, and closed using interrupted inverted dermal 3-0 Vicryl sutures followed by Steri-Strips and sterile dressings. Sponge, needle, instrument counts reported to be correct. Patient tolerated the procedure well and emerged from anesthesia stable condition. EBL minimal
[2022-11-23 11:41] VITALS: BP 168/99; PULSE 89; RESP 16; TEMP 36.8; O2SAT 98
[2022-11-23 11:56] VITALS: BP 149/81; PULSE 85; RESP 14; TEMP 36.8; O2SAT 99
== END 2022-11-23 13:10 | disposition home or self-care (01) ==
PROVIDERS: Nurse Practitioner; PCP Nurse Practitioner Family; Visit Provider Surgery
PROC: (CPT 11406; principal; 2022-11-23 11:50)
DX: L72.3 Sebaceous cyst (principal); I10 Essential (primary) hypertension; Z88.2 Allergy status to sulfonamides
CPT/HCPCS: 11406; 81025; 88304; J0690; J1100; J2250; J2405; J2795; J3010

== ENCOUNTER → 2022-11-23 09:31 | Outpatient (BNV) | payer OTHER, SELFPAY | PROVIDERS: PCP Nurse Practitioner Family; Visit Provider Surgery | DX: L72.3 Sebaceous cyst (principal) | CPT/HCPCS: 11406 ==

== ENCOUNTER 2022-12-01 09:57 | Outpatient (AMB) | payer OTHER, SELFPAY ==
--- NOTE | 2022-12-01 10:03 | A.OFFVIS_ITS ---
Intake Vital Signs 12/01/22 10:08 Weight 264 lb BP 167/93 H Blood Pressure Location Rt radial Position Sitting Pulse 90 Intake Visit Reasons: S/P exc. Lg mid back sebaceous cyst Intake Note: Patient here s/o excision on Lt mid back. Reports incision healing well. Denies pain or discomfort. [employer] Required: No Accompanied by: Self / Same As Patient Allergies sulfamethoxazole [From BACTRIM] Allergy (Intermediate, Verified 12/01/22 10:10) itching, itchy mouth trimethoprim [From BACTRIM] Allergy (Intermediate, Verified 12/01/22 10:10) itching, itchy mouth HPI HPI Comments History of Present Illness Details Patient presents for follow-up. She has no wound issues or complaints. Pathology is benign. 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 Assessment & Plan Assessment & Plan (1) Sebaceous cyst: Code(s): L72.3 - Sebaceous cyst Plan Patient has been given very specific local instructions including avoiding strenuous activity the next few weeks time. She will otherwise follow up p.r.n.. Coding Level of Care Code Global (90525) Diagnoses Sebaceous cyst L72.3
[2022-12-01 10:08] VITALS: BP 167/93; PULSE 90
== END 2022-12-01 10:14 | disposition home or self-care (01) ==
PROVIDERS: PCP Nurse Practitioner Family; Visit Provider Surgery
DX: L72.3 Sebaceous cyst (principal)
CPT/HCPCS: 99024

== ENCOUNTER → 2022-12-01 09:57 | Outpatient (BNVA) | payer OTHER, SELFPAY | PROVIDERS: PCP Nurse Practitioner Family; Visit Provider Surgery ==

== ENCOUNTER 2022-12-15 12:24 | Outpatient (AMB) | payer OTHER, SELFPAY ==
[2022-12-15 12:26] VITALS: BP 144/90; PULSE 91; RESP 12; TEMP 36.5; O2SAT 99; BMI 46.0
--- NOTE | 2022-12-15 12:26 | A.OFFPC_ITS ---
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 Accompanied by: Self / Same As Patient Allergies sulfamethoxazole [From BACTRIM] Allergy (Intermediate, Verified 12/15/22 12:46) itching, itchy mouth trimethoprim [From BACTRIM] Allergy (Intermediate, Verified 12/15/22 12:46) itching, itchy mouth Medication List - Last Reconciled 12/15/22 by Lottie Trevino CNP amlodipine 10 mg PO DAILY 30 days fluticasone propionate 50 mcg/actuation 1 spray intranasal DAILY Tobacco use date assessed: 06/29/22 Dental Screening Dental Screen Date: 12/15/22 Did you have a dental visit in the last 12 months?: No Did you have a dental problem in the last 6 months where you did not have access to dental care?: No Was dental information given to patient?: Patient has dentist HPI HPI Comments History of Present Illness Details 37-year-old female presents for hypertension follow-up. She is on amlodipine 10 mg daily which she notes she has been taking as prescribed. She notes she has been maintaining a low sodium diet. No acute symptoms today. She notes she had sebaceous cyst removed from her upper back 2 weeks ago. She is concerned about diabetes due to family history. FMH: Father: Diabetes, heart disease Mother: Diabetes, [facility]N [facility] Medical History Back abscess Essential hypertension Surgical History History of removal of cyst [place] teeth extracted Family History Mother HTN (hypertension) Irregular heart beat Diabetes Father Heart attack Brother Brain cancer Paternal Grandfather Heart disease Paternal Grandmother Breast cancer Social History Housing: House Alcohol intake: current Alcohol intake frequency: a few times a week Alcohol type: beer Patient Tobacco Use Status: Never used Tobacco e-Cigarette/Vaping Use: Never Used service: No Current occupational status: employed Current occupation: [employer] Cognitive needs: No Hearing needs: No Vision needs: No Questionnaire Thrive Questionnaire Date Thrive assessed: 06/29/22 AUBREY-7 AMB Questionnaire AUBREY-7 Date AUBREY - 7 assessed: 06/29/22 Source: Developed by Drs. Gold Espinosa, Naheed Carrasquillo, Joe Brush and colleagues, with an educational kelly from [employer]. Review of Systems Const Details: Const Denies chills, Denies fatigue, Denies fever(s), Denies headache(s) and Denies weakness ENT Denies dizziness and Denies headache(s) Card Denies chest pain, Denies lightheadedness, Denies dyspnea and Denies other (Palpitations) Resp Denies cough, Denies dyspnea, Denies wheezing and Denies other ( shortness of breath) GI Denies abdominal pain, Denies melena, Denies hematochezia, Denies change in bowel habits, Denies dyspepsia and Denies nausea Denies hematuria and Denies dysuria Musc Denies abnormal gait, Denies myalgias, Denies arthralgias, Denies numbness and Denies tingling Skin/Breast Denies rash, Denies unusual bruising and Denies wounds Neuro Denies abnormal gait, Denies dizziness, Denies headache(s), Denies memory loss, Denies numbness, Denies Sensory deficit (Neuro), Denies tingling and Denies weakness Psych Denies anxiety, Denies depression, Denies memory loss Endo Denies cold intolerance, Denies fatigue, Denies heat intolerance, Denies polydipsia and Denies polyuria Aller/Immun Denies wheezing Physical exam (Primary Care) Vital Signs: Last Vital Signs Temp 97.7 F 12/15/22 12:26 Pulse 91 12/15/22 12:26 Resp 12 12/15/22 12:26 BP 144/90 H 12/15/22 12:26 Pulse Ox 99 12/15/22 12:26 Oxygen Delivery Method Room Air 12/15/22 12:26 BMI result Body Mass Index 46.0 Tobacco/Smoking Status: Tobacco use Status Tobacco use date assessed 06/29/22 12/15/22 12:37 Patient Tobacco Use Status Never used Tobacco 12/15/22 12:37 e-Cigarette/Vaping Use Never Used 12/15/22 12:37 Thrive Assessment: Date of Thrive Assessment Date Thrive assessed 06/29/22 12/15/22 12:37 Const Other: General: no acute distress and well developed Nutritional Appearance: well nourished Orientation/consciousness: patient oriented x3 HENMT Head: Yes normocephalic and Yes atraumatic Eyes General: appearance normal, both eyes and all related structures Pupils: Equal, round and reactive pupils present EOM: EOMs intact bilaterally Resp Effort & Inspection: normal respiratory effort Auscultation: clear to auscultation bilaterally Cardio Rate: regular rate Rhythm: regular rhythm Heart sounds: S1 normal heart sound present, S2 normal heart sound present, no gallops, no murmurs and no rubs GI Palpation (GI): No Abdominal aortic bruit present, Soft to palpation, nontender, No hepatosplenomegaly present and No Rebound tenderness present Auscultation: normal bowel sounds General: Yes no CVA tenderness Back/Spine/Pelvis Back: no CVA tenderness Cervical Spine: cervical ROM normal and No Cervical spine tenderness Thoracic/Lumbar Spine: thoraco-lumbar ROM normal, No pain with thoraco-lumbar ROM, No thoracic spinal tenderness and No lumbar spinal tenderness Extrem General: Yes normal to inspection, No edema and No calf tenderness Skin General: warm and dry. Normal skin color. Normal skin turgor Lesions: no lesions Rashes: no rashes Trauma: no lacerations or abrasions Wounds: no wounds Nails: normal Neuro General: patient oriented x3, gait normal and no focal neuro deficit Cranial nerves: Yes Equal, round and reactive pupils present Cognition (Neuro): normal cognition Gait exam (Neuro): Normal gait present Sensory Exam: No Sensory deficit (Neuro) Psych Appearance: grossly normal Affect: normal affect Attitude: cooperative Thought process: Normal thought process present Assessment and Plan Assessment & Plan (1) Essential hypertension: Code(s): I10 - Essential (primary) hypertension Plan: Resting blood pressure is 160/100, above goal of less than 140/90 Metoprolol ordered. Take as prescribed Continue to take amlodipine as prescribed Low-sodium diet encouraged Labs ordered. Advised to fast for 10-12 hours and get blood work done before next visit Follow-up in 1 week with the nurse for blood pressure check and 1 month with PCP Return sooner with concerns or symptoms Verbalized understanding and agreed with treatment plan. (2) Morbid obesity with body mass index (BMI) of 40.0 to 49.9: Code(s): E66.01 - Morbid (severe) obesity due to excess calories Plan: Current BMI is 46.0 Healthy diet and routine exercise encouraged Will refer to nutrition/dietitian or weight management per patient request Follow-up with concerns or symptoms Verbalized understanding and agreed with treatment plan. Orders: Orders Comprehensive Dawson. Panel Fast Today I10 - Essential (primary) hypertension Lipid Panel Today I10 - Essential (primary) hypertension TSH reflex Free T4 Today I10 - Essential (primary) hypertension Complete Blood Count Auto Diff Today I10 - Essential (primary) hypertension UA CC w/rflx Micro + Cult Today I10 - Essential (primary) hypertension Medications: New metoprolol tartrate 50 mg PO DAILY 30 days 30 tabs 3RF Coding Level of Care Code Est Pt Level 3 (18397) Diagnoses Essential hypertension I10 Morbid obesity with body mass index (BMI) of 40.0 to 49.9 E66.01 Time Spent (min) 25
[2022-12-15 12:54] VITALS: BP 160/100
== END 2022-12-15 13:07 | disposition home or self-care (01) ==
PROVIDERS: PCP Nurse Practitioner Family; Visit Provider Nurse Practitioner Family
DX: I10 Essential (primary) hypertension (principal); E66.01 Morbid (severe) obesity due to excess calories; Z68.42 Body mass index [BMI] 45.0-49.9, adult
CPT/HCPCS: 99213

== ENCOUNTER 2023-01-03 08:51 | Outpatient (REF) | payer OTHER, SELFPAY ==
[2023-01-03 11:38] LABS: MANUAL DIFF FLAG NO
[2023-01-03 11:50] LABS: Appearance Urine Cloudy; Color Urine Dark Yellow; Glucose Urine UA Negative (Negative); Leukocyte Esterase Urine Small (1+) (Negative); Nitrite Urine Negative (Negative); PH 6.5 (5.0-9.0); UMIC TRIGGER UACC YES; Urine Blood Large (3+) (Negative); Urine Ketones Negative (Negative); Urine Protein Trace mg/dL (Neg-Trace)
[2023-01-03 11:54] LABS: Bacteria Urine None Seen (None Seen); Hyaline Casts Urine 0-2 /LPF (0-2); RBC Urine >20 /HPF (0-2); Squamous Epithelial Cell Urine 0-2 /HPF (0-2); UACC Culture Trigger YES
[2023-01-03 11:54] LABS: Basophils Percent Auto 0.4 % (0-2); Eosinophils Absolute Auto 0.3 X10*3/uL (0.0-0.4); Eosinophils Percent Auto 4.8 % (0-4); Hematocrit 40.6 % (37.0-47.0); Hemoglobin 13.4 g/dl (12.0-16.0); Imm Gran Abs Auto 0.02 X10*3/uL (0.00-0.03); Imm Gran Pct Auto 0.4 % (0.0-0.4); Lymphocytes Absolute Auto 1.4 X10*3/uL (1.2-4.9); Lymphocytes Percent Auto 27.7 % (20-40); Mean Corpuscular Hemoglobin 29.7 pg (27.0-33.0); Monocytes Absolute Auto 0.4 X10*3/uL (0.1-1.2); Monocytes Percent Auto 7.9 % (2-11); Neutrophils Absolute Auto 3.1 x10*3/uL (2.0-8.3); Neutrophils Percent Auto 58.8 % (45-73); Platelet Count 335 X10*3/uL (160-400); Red Blood Count 4.51 X10*6/uL (4.20-5.50); Red Cell Distribution Width 12.9 % (11.0-16.0); White Blood Count 5.2 X10*3/uL (4.8-10.8)
[2023-01-03 12:14] LABS: Alanine Aminotransferase 14 U/L (0-31); Albumin Level 4.2 g/dL (3.5-5.0); Alkaline Phosphatase 89 U/L (39-117); Anion Gap 12 (12-20); Aspartate Amino Transferase 13 U/L (5-31); Bilirubin Total 0.6 mg/dL (0.0-1.0); Blood Urea Nitrogen 11 mg/dL (9-16); Calcium 9.7 mg/dL (8.4-10.2); Carbon Dioxide 26 mmol/L (22-29); Chloride 106 mmol/L (96-108); Cholesterol 206 mg/dL (<200); Estimated Glomerular Filt Rate > 60; Glucose Fasting 114 mg/dL (60-99); HDL Cholesterol 42 mg/dL (>40); LDL Cholesterol Calculated 136 mg/dL (<100); Potassium 4.2 mmol/L (3.3-5.1); Sodium 140 mmol/L (135-145); Total Protein 7.3 g/dL (6.5-8.0); Triglycerides 140 mg/dL (<150)
[2023-01-03 12:23] LABS: TSH reflex Free T4 3.23 uIU/mL (0.32-4.0)
== END 2023-01-03 08:52 | disposition home or self-care (01) ==
LOC: HO.HMGCLDS 08:51
PROVIDERS: PCP Nurse Practitioner Family; Visit Provider Nurse Practitioner Family
DX: I10 Essential (primary) hypertension (principal); R82.90 Unspecified abnormal findings in urine
CPT/HCPCS: 36415; 80053; 80061; 81001; 84443; 85025; 87086; 87147

== ENCOUNTER 2023-01-12 12:15 | Outpatient (AMB) | payer OTHER, SELFPAY ==
--- NOTE | 2023-01-12 12:18 | MHC.PC.OV ---
Vital Signs 01/12/23 12:22 01/12/23 12:39 Height 5 ft 4 in Weight 267 lb 4 oz BMI 45.9 BP 142/86 H 148/100 H Blood Pressure Location Rt brachial Rt brachial Position Sitting Sitting Respiration 14 Pulse 80 72 Pulse Source Pulse Oximeter Palpation Temp 98.9 F Temp Source Oral Pulse Oximetry (%) 98 Oxygen Delivery Method Room Air Intake Visit Reasons: htn Intake Note: Patient is here to follow up with hypertension. 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 Accompanied by: Self / Same As Patient Allergies sulfamethoxazole [From BACTRIM] Allergy (Intermediate, Verified 01/12/23 12:31) itching, itchy mouth trimethoprim [From BACTRIM] Allergy (Intermediate, Verified 01/12/23 12:31) itching, itchy mouth Medication List - Last Reconciled 01/12/23 by Lottie Trevino CNP amlodipine 10 mg PO DAILY 30 days fluticasone propionate 50 mcg/actuation 1 spray intranasal DAILY metoprolol tartrate 50 mg PO BID 30 days Tobacco use date assessed: 01/12/23 Dental Screening Dental Screen Date: 01/12/23 Did you have a dental visit in the last 12 months?: Yes Did you have a dental problem in the last 6 months where you did not have access to dental care?: No Was dental information given to patient?: Patient has dentist HPI HPI Comments History of Present Illness Details 37-year-old female presents for hypertension follow-up. She is on amlodipine and metoprolol. Her blood pressure was significantly elevated at the last visit, therefore, metoprolol was added to her treatment plan. Her blood pressure improved when she follow-up with the nurse over week later. She notes she has been taking her medications as prescribed and maintaining low-sodium diet. She states she has been monitoring her blood pressure daily since her last visit. Her blood pressure readings are in the 120s/80s and her heart rate is in the 60s and sometimes mid 50s. No dizziness or lightheadedness. No acute symptoms today. 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 Gold Espinosa, Naheed Carrasquillo, Joe Brush and colleagues, with an educational kelyl from [employer]. Review of Systems Const Details: Const Denies chills, Denies fatigue, Denies fever(s), Denies headache(s) and Denies weakness ENT Denies dizziness and Denies headache(s) Card Denies chest pain, Denies lightheadedness, Denies dyspnea and Denies other (Palpitations) Resp Denies cough, Denies dyspnea, Denies wheezing and Denies other ( shortness of breath) GI Denies abdominal pain, Denies melena, Denies hematochezia, Denies change in bowel habits, Denies dyspepsia and Denies nausea Denies hematuria and Denies dysuria Musc Denies abnormal gait, Denies myalgias, Denies arthralgias, Denies numbness and Denies tingling Skin/Breast Denies rash, Denies unusual bruising and Denies wounds Neuro Denies abnormal gait, Denies dizziness, Denies headache(s), Denies memory loss, Denies numbness, Denies Sensory deficit (Neuro), Denies tingling and Denies weakness Psych Denies anxiety, Denies depression, Denies memory loss Endo Denies cold intolerance, Denies fatigue, Denies heat intolerance, Denies polydipsia and Denies polyuria Aller/Immun Denies wheezing Physical exam (Primary Care) Vital Signs: Last Vital Signs Temp 98.9 F 01/12/23 12:22 Pulse 80 01/12/23 12:22 Resp 14 01/12/23 12:22 BP 142/86 H 01/12/23 12:22 Pulse Ox 98 01/12/23 12:22 Oxygen Delivery Method Room Air 01/12/23 12:22 BMI result Body Mass Index 45.9 Tobacco/Smoking Status: Tobacco use Status Tobacco use date assessed 01/12/23 01/12/23 12:27 Patient Tobacco Use Status Never used Tobacco 01/12/23 12:20 e-Cigarette/Vaping Use Never Used 01/12/23 12:20 Thrive Assessment: Date of Thrive Assessment Date Thrive assessed 06/29/22 01/12/23 12:20 Const Other: General: no acute distress and well developed Nutritional Appearance: well nourished Orientation/consciousness: patient oriented x3 HENMT Head: Yes normocephalic and Yes atraumatic Eyes General: appearance normal, both eyes and all related structures Pupils: Equal, round and reactive pupils present EOM: EOMs intact bilaterally Resp Effort & Inspection: normal respiratory effort Auscultation: clear to auscultation bilaterally Cardio Rate: regular rate Rhythm: regular rhythm Heart sounds: S1 normal heart sound present, S2 normal heart sound present, no gallops, no murmurs and no rubs GI Palpation (GI): No Abdominal aortic bruit present, Soft to palpation, nontender, No hepatosplenomegaly present and No Rebound tenderness present Auscultation: normal bowel sounds General: Yes no CVA tenderness Back/Spine/Pelvis Back: no CVA tenderness Cervical Spine: cervical ROM normal and No Cervical spine tenderness Thoracic/Lumbar Spine: thoraco-lumbar ROM normal, No pain with thoraco-lumbar ROM, No thoracic spinal tenderness and No lumbar spinal tenderness Extrem General: Yes normal to inspection, No edema and No calf tenderness Skin General: warm and dry. Normal skin color. Normal skin turgor Lesions: no lesions Rashes: no rashes Trauma: no lacerations or abrasions Wounds: no wounds Nails: normal Neuro General: patient oriented x3, gait normal and no focal neuro deficit Cranial nerves: Yes Equal, round and reactive pupils present Cognition (Neuro): normal cognition Gait exam (Neuro): Normal gait present Sensory Exam: No Sensory deficit (Neuro) Psych Appearance: grossly normal Affect: normal affect Attitude: cooperative Thought process: Normal thought process present Assessment and Plan Assessment & Plan (1) Essential hypertension: Code(s): I10 - Essential (primary) hypertension Plan: Resting blood pressure is 148/100, above goal of less than 140/80 Metoprolol discontinued Lisinopril ordered. Take as prescribed Continue to take amlodipine as prescribed Low-sodium diet encouraged Monitor blood pressure once a twice daily, record readings, and bring to next appointment Reports blood pressure readings consistently above 140/90 Follow-up in 2 weeks or return sooner with symptoms or concerns Verbalized understanding and agreed with treatment plan. (2) Elevated fasting glucose: Code(s): R73.01 - Impaired fasting glucose Plan: Recent lab results reviewed with the patient Fasting glucose is slightly elevated Will recheck fasting glucose. Advised to fast for at least 10-12 hours acute and get blood work done before next visit Follow-up in 2 weeks Verbalized understanding and agreed with treatment plan. (3) Hypercholesterolemia: Code(s): E78.00 - Pure hypercholesterolemia, unspecified Plan: Recent lab results reviewed with the patient Total cholesterol and LDL were slightly elevated Advised to limit foods high in saturated fat and avoid foods high trans fat Routine exercise encouraged Verbalized understanding and agreed with treatment plan. Medications: New lisinopril 20 mg PO DAILY 30 days 30 tabs 2RF Discontinued metoprolol tartrate Discontinued Reason: Doctor's Order 50 mg PO BID 30 days 60 tabs 3RF Coding Level of Care Code Est Pt Level 3 (44617) Diagnoses Essential hypertension I10 Elevated fasting glucose R73.01 Hypercholesterolemia E78.00
[2023-01-12 12:22] VITALS: BP 142/86; PULSE 80; RESP 14; TEMP 37.2; O2SAT 98; BMI 45.9
[2023-01-12 12:39] VITALS: BP 148/100; PULSE 72
== END 2023-01-12 12:54 | disposition home or self-care (01) ==
PROVIDERS: PCP Nurse Practitioner Family; Visit Provider Nurse Practitioner Family
DX: I10 Essential (primary) hypertension (principal); R73.01 Impaired fasting glucose; E78.00 Pure hypercholesterolemia, unspecified
CPT/HCPCS: 99213

== ENCOUNTER 2023-02-15 13:11 | Outpatient (AMB) | payer OTHER, SELFPAY ==
[2023-02-15 13:14] VITALS: BP 150/82; PULSE 86; RESP 16; TEMP 36.9; O2SAT 99; BMI 46.2
--- NOTE | 2023-02-15 13:14 | MHC.PC.OV ---
Vital Signs 02/15/23 13:14 02/15/23 13:53 Height 5 ft 4 in Weight 269 lb BMI 46.2 BP 150/82 H 136/84 Blood Pressure Location Lt brachial Rt brachial Position Sitting Sitting Respiration 16 Pulse 86 Pulse Source Pulse Oximeter Temp 98.4 F Temp Source Oral Pulse Oximetry (%) 99 Oxygen Delivery Method Room Air Intake Visit Reasons: htn Intake Note: Patient is here to follow up on hypertension today. Allergies sulfamethoxazole [From BACTRIM] Allergy (Intermediate, Verified 02/15/23 13:46) itching, itchy mouth trimethoprim [From BACTRIM] Allergy (Intermediate, Verified 02/15/23 13:46) itching, itchy mouth Medication List - Last Reconciled 02/15/23 by Lottie Trevino CNP amlodipine 10 mg PO DAILY 30 days fluticasone propionate 50 mcg/actuation 1 spray intranasal DAILY lisinopril 20 mg PO DAILY 30 days Tobacco use date assessed: 02/15/23 HPI HPI Comments History of Present Illness Details 37-year-old female presents for hypertension follow-up. Her last of his was a month ago. Her blood pressure was elevated, 140/100. Metoprolol was discontinued. Lisinopril was ordered. She was advised to take metoprolol and amlodipine as prescribed. She notes that she has been taking her medications as prescribed. She states that her average home BP readings is in the 130/90s, lower in the morning at times. She offers no complaints and denies acute symptoms at this time. 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 Gold Espinosa, Naheed Carrasquillo, Joe Brush and colleagues, with an educational kelly from [employer]. Review of Systems Const Details: Const Denies chills, Denies fatigue, Denies fever(s), Denies headache(s) and Denies weakness ENT Denies dizziness and Denies headache(s) Card Denies chest pain, Denies lightheadedness, Denies dyspnea and Denies other (Palpitations) Resp Denies cough, Denies dyspnea, Denies wheezing and Denies other ( shortness of breath) GI Denies abdominal pain, Denies melena, Denies hematochezia, Denies change in bowel habits, Denies dyspepsia and Denies nausea Denies hematuria and Denies dysuria Musc Denies abnormal gait, Denies myalgias, Denies arthralgias, Denies numbness and Denies tingling Skin/Breast Denies rash, Denies unusual bruising and Denies wounds Neuro Denies abnormal gait, Denies dizziness, Denies headache(s), Denies memory loss, Denies numbness, Denies Sensory deficit (Neuro), Denies tingling and Denies weakness Psych Denies anxiety, Denies depression, Denies memory loss Endo Denies cold intolerance, Denies fatigue, Denies heat intolerance, Denies polydipsia and Denies polyuria Aller/Immun Denies wheezing Physical exam (Primary Care) Vital Signs: Last Vital Signs Temp 98.4 F 02/15/23 13:14 Pulse 86 02/15/23 13:14 Resp 16 02/15/23 13:14 BP 150/82 H 02/15/23 13:14 Pulse Ox 99 02/15/23 13:14 Oxygen Delivery Method Room Air 02/15/23 13:14 BMI result Body Mass Index 46.2 Tobacco/Smoking Status: Tobacco use Status Tobacco use date assessed 02/15/23 02/15/23 13:17 Patient Tobacco Use Status Never used Tobacco 02/15/23 13:17 e-Cigarette/Vaping Use Never Used 02/15/23 13:17 Thrive Assessment: Date of Thrive Assessment Date Thrive assessed 06/29/22 02/15/23 13:17 Const Other: General: no acute distress and well developed Nutritional Appearance: well nourished Orientation/consciousness: patient oriented x3 [facility] Head: Yes normocephalic and Yes atraumatic Eyes General: appearance normal, both eyes and all related structures Pupils: Equal, round and reactive pupils present EOM: EOMs intact bilaterally Resp Effort & Inspection: normal respiratory effort Auscultation: clear to auscultation bilaterally Cardio Rate: regular rate Rhythm: regular rhythm Heart sounds: S1 normal heart sound present, S2 normal heart sound present, no gallops, no murmurs and no rubs GI Palpation (GI): No Abdominal aortic bruit present, Soft to palpation, nontender, No hepatosplenomegaly present and No Rebound tenderness present Auscultation: normal bowel sounds General: Yes no CVA tenderness Back/Spine/Pelvis Back: no CVA tenderness Cervical Spine: cervical ROM normal and No Cervical spine tenderness Thoracic/Lumbar Spine: thoraco-lumbar ROM normal, No pain with thoraco-lumbar ROM, No thoracic spinal tenderness and No lumbar spinal tenderness Extrem General: Yes normal to inspection, No edema and No calf tenderness Skin General: warm and dry. Normal skin color. Normal skin turgor Lesions: no lesions Rashes: no rashes Trauma: no lacerations or abrasions Wounds: no wounds Nails: normal Neuro General: patient oriented x3, gait normal and no focal neuro deficit Cranial nerves: Yes Equal, round and reactive pupils present Cognition (Neuro): normal cognition Gait exam (Neuro): Normal gait present Sensory Exam: No Sensory deficit (Neuro) Psych Appearance: grossly normal Affect: normal affect Attitude: cooperative Thought process: Normal thought process present Assessment and Plan Assessment & Plan (1) Essential hypertension: Code(s): I10 - Essential (primary) hypertension Plan: Initial blood pressure was 150/82. Resting blood pressure is 136/84, above goal of less than 140/90 Will increase lisinopril to 40 mg daily. Take as prescribed Continue to take amlodipine as prescribed Low-sodium diet and routine exercise encouraged Follow-up in 1 month or return sooner with symptoms or concerns Verbalized understanding and agreed with treatment plan. (2) Elevated fasting glucose: Code(s): R73.01 - Impaired fasting glucose Plan: Her fasting glucose was elevated in December, Fasting blood glucose was ordered for repeat. Patient advised to fast for 10-12 hours and get blood work done before next visit Follow-up in 1 month Verbalized understanding and agreed with treatment plan. Medications: New lisinopril 40 mg PO DAILY 30 days 30 tabs 3RF Discontinued lisinopril Discontinued Reason: Doctor's Order 20 mg PO DAILY 30 days 30 tabs 2RF Coding Level of Care Code Est Pt Level 3 (40134) Diagnoses Essential hypertension I10 Elevated fasting glucose R73.01
[2023-02-15 13:53] VITALS: BP 136/84
== END 2023-02-15 14:00 | disposition home or self-care (01) ==
PROVIDERS: PCP Nurse Practitioner Family; Visit Provider Nurse Practitioner Family
DX: I10 Essential (primary) hypertension (principal); R73.01 Impaired fasting glucose
CPT/HCPCS: 99214

== ENCOUNTER 2023-03-17 07:09 | Outpatient (REF) | payer OTHER, SELFPAY ==
[2023-03-17 12:29] LABS: Glucose Fasting 110 mg/dL (60-99)
== END 2023-03-17 07:10 | disposition home or self-care (01) ==
LOC: HO.HMGCLDS 07:09
PROVIDERS: PCP Nurse Practitioner Family; Visit Provider Nurse Practitioner Family
DX: R73.01 Impaired fasting glucose (principal)
CPT/HCPCS: 36415; 82947

== ENCOUNTER 2023-03-19 09:56 | Outpatient (AMB) | payer OTHER, SELFPAY ==
--- NOTE | 2023-03-19 09:58 | MHC.PC.OV ---
Vital Signs 03/19/23 10:01 03/19/23 10:16 Height 5 ft 4 in Weight 268 lb BMI 46.0 BP 136/78 124/80 Blood Pressure Location Rt brachial Rt brachial Position Sitting Sitting Respiration 13 Pulse 101 H 84 Pulse Source Pulse Oximeter Auscultation Pulse Oximetry (%) 98 Oxygen Delivery Method Room Air Intake Visit Reasons: htn Intake Note: Patient is here for a follow up regarding hypertension. Per provider request, will perform an A1C. Patient reports she shares no concerns at this time. Patient woul dlike to have the flu shot today. 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 Accompanied by: Self / Same As Patient Allergies sulfamethoxazole [From BACTRIM] Allergy (Intermediate, Verified 03/19/23 10:10) itching, itchy mouth trimethoprim [From BACTRIM] Allergy (Intermediate, Verified 03/19/23 10:10) itching, itchy mouth Medication List - Last Reconciled 03/19/23 by Lottie Trevino CNP amlodipine 10 mg PO DAILY 30 days fluticasone propionate 50 mcg/actuation 1 spray intranasal DAILY lisinopril 40 mg PO DAILY 30 days Tobacco use date assessed: 02/15/23 HPI HPI Comments History of Present Illness Details 37-year-old female presents for hypertension and elevated blood glucose follow-up. She notes that she has been taking her medications as prescribed and maintaining a low salt diet. She states that her average home BP readings is in the 120s/80s. She offers no complaints and denies acute symptoms at this time. She requested the flu vaccine. 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 Gold Espinosa, Naheed Carrasquillo, Joe Brush and colleagues, with an educational kelly from [employer]. Review of Systems Const Details: Const Denies chills, Denies fatigue, Denies fever(s), Denies headache(s) and Denies weakness ENT Denies dizziness and Denies headache(s) Card Denies chest pain, Denies lightheadedness, Denies dyspnea and Denies other (Palpitations) Resp Denies cough, Denies dyspnea, Denies wheezing and Denies other ( shortness of breath) GI Denies abdominal pain, Denies melena, Denies hematochezia, Denies change in bowel habits, Denies dyspepsia and Denies nausea Denies hematuria and Denies dysuria Musc Denies abnormal gait, Denies myalgias, Denies arthralgias, Denies numbness and Denies tingling Skin/Breast Denies rash, Denies unusual bruising and Denies wounds Neuro Denies abnormal gait, Denies dizziness, Denies headache(s), Denies memory loss, Denies numbness, Denies Sensory deficit (Neuro), Denies tingling and Denies weakness Psych Denies anxiety, Denies depression, Denies memory loss Endo Denies cold intolerance, Denies fatigue, Denies heat intolerance, Denies polydipsia and Denies polyuria Aller/Immun Denies wheezing Physical exam (Primary Care) Vital Signs: Last Vital Signs Pulse 84 03/19/23 10:16 Resp 13 03/19/23 10:01 BP 124/80 03/19/23 10:16 Pulse Ox 98 03/19/23 10:01 Oxygen Delivery Method Room Air 03/19/23 10:01 BMI result Body Mass Index 46.0 Tobacco/Smoking Status: Tobacco use Status Tobacco use date assessed 02/15/23 03/19/23 09:59 Patient Tobacco Use Status Never used Tobacco 03/19/23 09:59 e-Cigarette/Vaping Use Never Used 03/19/23 09:59 Thrive Assessment: Date of Thrive Assessment Date Thrive assessed 06/29/22 03/19/23 09:59 Const Other: General: no acute distress and well developed Nutritional Appearance: well nourished Orientation/consciousness: patient oriented x3 [facility] Head: Yes normocephalic and Yes atraumatic Eyes General: appearance normal, both eyes and all related structures Pupils: Equal, round and reactive pupils present EOM: EOMs intact bilaterally Resp Effort & Inspection: normal respiratory effort Auscultation: clear to auscultation bilaterally Cardio Rate: regular rate Rhythm: regular rhythm Heart sounds: S1 normal heart sound present, S2 normal heart sound present, no gallops, no murmurs and no rubs GI Palpation (GI): No Abdominal aortic bruit present, Soft to palpation, nontender, No hepatosplenomegaly present and No Rebound tenderness present Auscultation: normal bowel sounds General: Yes no CVA tenderness Back/Spine/Pelvis Back: no CVA tenderness Cervical Spine: cervical ROM normal and No Cervical spine tenderness Thoracic/Lumbar Spine: thoraco-lumbar ROM normal, No pain with thoraco-lumbar ROM, No thoracic spinal tenderness and No lumbar spinal tenderness Extrem General: Yes normal to inspection, No edema and No calf tenderness Skin General: warm and dry. Normal skin color. Normal skin turgor Lesions: no lesions Rashes: no rashes Trauma: no lacerations or abrasions Wounds: no wounds Nails: normal Neuro General: patient oriented x3, gait normal and no focal neuro deficit Cranial nerves: Yes Equal, round and reactive pupils present Cognition (Neuro): normal cognition Gait exam (Neuro): Normal gait present Sensory Exam: No Sensory deficit (Neuro) Psych Appearance: grossly normal Affect: normal affect Attitude: cooperative Thought process: Normal thought process present Office Procedures Flu Questionnaire Does the patient have a severe egg allergy?: No Does the patient have severe life threatening allergies?: No Does the patient have a fever or illness today?: No Has the patient ever had Guillain-[place] Syndrome?: No Has the patient ever had any past reaction to a flu shot?: No Results AMB Hemoglobin A1c AMB Hemoglobin A1c 6.1 % Last Edit by Nadege Giraldo CMA on 03/19/23 10:15 Immunizations flu vacc [id number] 6mos up(PF) 60 mcg(15 mcgx4)/0.5 mL IM syringe Performing Provider: Lottie Trevino CNP Performing Location: [facility] Administered by: Lesly Woods RN on 03/19/23 10:34 Dose Route Admin Location Dispensed Lot Number Expiration Date NDC General Operations Agent 0.5 mL IM Left Deltoid 0.5 mL [id number] 11/04/23 61029-499-17 [employer] VIS Given Date VIS Provided VIS Publication Date 03/19/23 Single Vaccine 20 Eligibility Eligibility Date Funding Source Not [facility] Eligible 04/05/23 Private Results Reviewed Results Reviewed: Laboratory Last Values Hgb A1c (Clinic) 6.1 % (4.0-6.0) H 03/19/23 10:12 Assessment and Plan Assessment & Plan (1) Essential hypertension: Code(s): I10 - Essential (primary) hypertension Plan: Resting blood pressure is 124/80, within goal of less than 140/90 Continue to take lisinopril amlodipine as prescribed Low-sodium diet encouraged Continue to monitor blood pressure at home Will continue to monitor Follow-up in 1 month for an extended physical exam Return sooner with symptoms or concerns Verbalized understanding and agreed with treatment plan Flu vaccine administered by the nurse. (2) Pre-diabetes: Code(s): R73.03 - Prediabetes Plan: Her fasting glucose has been elevated twice recently, 114 and 110 A1c today is 6.1%, indicates prediabetes She notes that her mother has history of insulin-dependent diabetes ADA diet and routine exercise encouraged Will recheck A1c in 6 months Return with symptoms or concerns Verbalized understanding and agreed with treatment plan. Orders: Orders AMB Hemoglobin A1c Today Z13.9 - Encounter for screening, unspecified Influenza [id number] Immunization Today Z23 - Encounter for immunization Coding Level of Care Code Est Pt Level 4 (84625) Diagnoses Essential hypertension I10 Pre-diabetes R73.03
[2023-03-19 10:01] VITALS: BP 136/78; PULSE 101; RESP 13; O2SAT 98; BMI 46.0
[2023-03-19 10:16] VITALS: BP 124/80; PULSE 84
== END 2023-03-19 10:30 | disposition home or self-care (01) ==
PROVIDERS: PCP Nurse Practitioner Family; Visit Provider Nurse Practitioner Family
DX: I10 Essential (primary) hypertension (principal); R73.03 Prediabetes; Z23 Encounter for immunization
CPT/HCPCS: 83036; 90471; 90686; 99214

== ENCOUNTER 2023-08-27 08:28 | Outpatient (AMB) | payer OTHER, SELFPAY ==
[2023-08-27 08:36] VITALS: BP 132/84; PULSE 105; RESP 13; TEMP 36.6; O2SAT 98; BMI 45.4
--- NOTE | 2023-08-27 08:36 | MHC.PC.OV ---
Vital Signs 08/27/23 08:36 Height 5 ft 4 in Weight 264 lb 6 oz BMI 45.4 BP 132/84 Blood Pressure Location Rt brachial Position Sitting Respiration 13 Pulse 105 H Pulse Source Pulse Oximeter Temp 97.8 F Temp Source Temporal Artery Scan Pulse Oximetry (%) 98 Oxygen Delivery Method Room Air Intake Visit Reasons: CPE Motorcyles Final Inspector Required: No Accompanied by: Self / Same As Patient Allergies sulfamethoxazole [From BACTRIM] Allergy (Intermediate, Verified 08/27/23 08:46) itching, itchy mouth trimethoprim [From BACTRIM] Allergy (Intermediate, Verified 08/27/23 08:42) itching, itchy mouth Tobacco use date assessed: 08/27/23 Dental Screening Dental Screen Date: 08/27/23 Did you have a dental visit in the last 12 months?: No Did you have a dental problem in the last 6 months where you did not have access to dental care?: No Was dental information given to patient?: Patient has dentist HPI HPI Comments History of Present Illness Details 38-year-old female presents for an extended physical exam. She has past medical history significant for prediabetes, hypercholesterolemia, morbid obesity, and hypertension. She admits to taking her medications as prescribed without adverse reactions. She notes that she has been stress and anxious. 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 Therefore, she has not been making healthy dietary choices or exercising routinely. She notes that her work situation is improving and intends to eat better and exercise routinely. She reports intermittent soreness to the back of her left knee for the past 4 months, especially with prolonged standing. She notes family h/o varicose veins. Last pap smear was a couple years ago: normal. She has a follow up appointment for pap smear later this year She has dermatology appointment scheduled for skin check. She has family history of skin cancer She is up-to-date on flu vaccine Denies dental screening in the past 12 months [facility] Medical History Back abscess Essential hypertension Surgical History History of removal of cyst [place] teeth extracted Family History (Updated 08/27/23 @ 08:43 by Joyce Webber [facility]) Mother HTN (hypertension) Irregular heart beat Diabetes Father Heart attack Brother Brain cancer Paternal Grandfather Heart disease Paternal Grandmother Breast cancer Social History Household Members: Spouse Housing: House Alcohol intake: current Alcohol intake frequency: a few times a week Alcohol type: beer Patient Tobacco Use Status: Never used Tobacco e-Cigarette/Vaping Use: Never Used service: No Current occupational status: employed 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 1. Little interest or pleasure in doing things: not at all 2. Feeling down, depressed, or hopeless: not at all 3. Trouble falling or staying asleep, or sleeping too much: several days (Staying asleep) 4. Feeling tired or having little energy: several days 5. Poor appetite or overeating: not at all 6. Feeling bad about yourself - or that you are a failure or have let yourself or your family down: not at all 7. Trouble concentrating on things, such as reading the newspaper or watching television: several days 8. Moving or speaking so slowly that other people could have noticed. Or the opposite - being so fidgety or restless that you have been moving around a lot more than usual: not at all 9. Thoughts that you would be better off or of hurting yourself in some way: not at all Total score: 3 Depression Screening Interpretation: Negative Depression Screening Done: Yes [id number] - PHQ-9 Billing: Yes Source: Developed by Drs. Gold Espinosa, Naheed Carrasquillo, Joe Brush and colleagues, with an educational kelly from [employer]. Thrive Questionnaire Date Thrive assessed: 08/27/23 I am a: Patient What is your living situation today?: I have a steady place to live Within the past 12 months, did the food you bought not last and you didn't have the money to get more?: Never true Within the past 12 months, did you worry whether your food would run out before you got money to buy more?: Never true Do you have trouble paying for medicines?: No Do you have trouble getting transportation to medical appointments?: No Do you have trouble paying your heating and electricity bill?: No Do you have trouble taking care of your child, family member or friend?: No Do you have trouble with day-to-day activities such as bathing, preparing meals, shopping, managing finances, etc.?: No Are you currently unemployed and looking for a job?: No Are you interested in more education?: No Please select the resources that you would like help with: None Currently or been in a relationship where the following occur: no concerns reported THRIVE Score: 0 AUDIT C Alcohol Use Questionnaire (AUDIT-C) 1. How often do you have a drink containing alcohol?: 2-3 times a week 2. How many drinks containing alcohol do you have on a typical day when you are drinking?: 3 or 4 3. How often do you have six or more drinks on one occasion?: Never Total Score: 4 AUBREY-7 AMB Questionnaire AUBREY-7 Date AUBREY - 7 assessed: 08/27/23 Feeling nervous, anxious, or on edge: 3 = Nearly every day Not being able to stop or control worryin = More than half the days Worrying too much about different things: 1 = Several days Trouble relaxin = Not at all Being so restless that it is hard to sit still: 0 = Not at all Becoming easily annoyed or irritable: 0 = Not at all Feeling afraid as if something awful might happen: 0 = Not at all Total AUBREY-7 score (0-4 normal; 5-9 mild; 10-14 moderate; 15-21 severe): 6 Source: Developed by Drs. Gold Espinosa, Naheed Carrasquillo, Joe Brush and colleagues, with an educational kelly from [employer]. AUBREY-7 Assessment Billing AUBREY-7 Assessment Tool: AUBREY-7 Assessment 80436 Review of Systems Const Details: Denies chills, Denies fatigue, Denies fever(s), Denies headache(s) and Denies weakness HEENT Denies change in vision, Denies dizziness, Denies headache(s), Denies hearing loss, Denies nasal congestion, Denies sinus pain, Denies sinus pressure and Denies sore throat Card Denies chest pain, Denies lightheadedness, Denies dyspnea and Denies other (palpitations) Resp Denies cough, Denies dyspnea and Denies wheezing GI Denies abdominal pain, Denies melena, Denies hematochezia, Denies change in bowel habits, Denies dyspepsia and Denies nausea Denies hematuria and Denies dysuria Musc Denies abnormal gait, Denies myalgias, Denies arthralgias, Denies numbness and Denies tingling Skin/Breast Reports moles, Reports varicose veins behind the left knee, Denies rash, Denies unusual bruising and Denies wounds Neuro Denies abnormal gait, Denies dizziness, Denies headache(s), Denies memory loss, Denies numbness, Denies Sensory deficit (Neuro), Denies tingling and Denies weakness Psych Denies anxiety, Denies depression and Denies memory loss Endo Denies cold intolerance, Denies fatigue, Denies heat intolerance, Denies polydipsia and Denies polyuria Zia/Lymph Denies easy bleeding and Denies easy bruising Aller/Immun Denies wheezing Physical exam (Primary Care) Vital Signs: Last Vital Signs Temp 97.8 F 08/27/23 08:36 Pulse 105 H 08/27/23 08:36 Resp 13 08/27/23 08:36 BP 132/84 08/27/23 08:36 Pulse Ox 98 08/27/23 08:36 Oxygen Delivery Method Room Air 08/27/23 08:36 BMI result Body Mass Index 45.4 Tobacco/Smoking Status: Tobacco use Status Tobacco use date assessed 02/15/23 08/27/23 08:36 Patient Tobacco Use Status Never used Tobacco 08/27/23 08:36 e-Cigarette/Vaping Use Never Used 08/27/23 08:36 Depression Screening Interpretation: Negative Thrive Assessment: Date of Thrive Assessment Date Thrive assessed 06/29/22 08/27/23 08:36 Currently or been in a relationship where the following occur: no concerns reported Const Other: General: no acute distress, well developed, alert and awake Nutritional Appearance: well nourished Orientation/consciousness: patient oriented x3 HENMT Head: Yes normocephalic and Yes atraumatic Ears: hearing grossly normal bilaterally and TM's normal bilaterally General nose exam: Normal external nose present and Normal nares present Mouth: Normal oral and palatal mucosa present and moist mucous membranes Teeth and gingiva: dentition normal Throat: Yes oropharynx normal Eyes Pupils: Equal, round and reactive pupils present and Pupil accommodation reflex normal EOM: EOMs intact bilaterally Neck Neck: Yes normal visual inspection, Yes no lymphadenopathy and Yes trachea midline Thyroid: Thyroid normal Carotids: no bruits Lymphatic: no lymphadenopathy noted Chest Chest palpation & inspection: normal inspection of the chest Resp Effort & Inspection: normal respiratory effort Auscultation: clear to auscultation bilaterally Cardio Rate: regular rate Rhythm: regular rhythm Heart sounds: S1 normal heart sound present, S2 normal heart sound present, no gallops, no murmurs and no rubs Bruits: no abdominal aortic bruits and no carotid bruits GI Palpation (GI): No Abdominal aortic bruit present, Soft to palpation, nontender, No hepatosplenomegaly present and No Rebound tenderness present Auscultation: normal bowel sounds General: Yes no CVA tenderness Back/Spine/Pelvis Back: no CVA tenderness Cervical Spine: cervical ROM normal and No Cervical spine tenderness Thoracic/Lumbar Spine: thoraco-lumbar ROM normal, No pain with thoraco-lumbar ROM, No thoracic spinal tenderness and No lumbar spinal tenderness Skin General: warm and dry. Normal skin color. Normal skin turgor Lesions: Moles to various areas. Varicose veins to the left and right posterior thigh, proximal to the knees, no edema or overt injury/trauma Rashes: no rashes Trauma: no lacerations or abrasions Wounds: no wounds Nails: normal Neuro General: patient oriented x3, gait normal and CN's II-XI intact bilaterally Cranial nerves: Yes Equal, round and reactive pupils present Cognition (Neuro): normal cognition Gait exam (Neuro): Normal gait present Motor exam (neuro): 5/5 motor strength present throughout Sensory Exam: No Sensory deficit (Neuro) Deep tendon reflexes (DTR's): Right patellar reflex intensity grade: 2+ and Left patellar reflex intensity grade: 2+ Extrem General: Yes normal to inspection, No edema and No calf tenderness Psych Appearance: grossly normal Affect: normal affect Attitude: cooperative Thought process: Normal thought process present Assessment and Plan Assessment & Plan (1) Normal physical examination, routine: Code(s): Z00.00 - Encounter for general adult medical examination without abnormal findings Plan: No significant physical restrictions or limitations noted Continue current treatment regimen Healthy diet and routine exercise encouraged Advised to establish with a dentist for routine dental care Advised to get fasting blood work done before next visit Follow-up in 3 months for hypertension, hypercholesterolemia, and prediabetes Return sooner with symptoms or concerns Verbalized understanding and agreed with treatment plan (2) Varicose vein of leg: Code(s): I83.90 - Asymptomatic varicose veins of unspecified lower extremity Plan: Reports intermittent soreness to the back of her left knee for the past 4 months, especially with prolonged standing Varicose veins to the left and right posterior thigh, proximal to the knees, no edema or overt injury/trauma Warm/cold compresses encouraged Advised to avoid prolonged standing Referred to vascular surgery Follow-up with worsening or new symptoms Verbalized understanding and agreed with treatment plan (3) Morbid obesity with body mass index (BMI) of 40.0 to 49.9: Code(s): E66.01 - Morbid (severe) obesity due to excess calories Plan: She currently weighs 264 lb, BMI is 45.4 Declines referral to weight management or electrical worker/dietitian at this time and notes that she will work on diet and exercise Healthy diet and routine exercise encouraged She may notify her PCP if she changes her mind on referral to with management on electrical worker/dietitian Follow-up with symptoms or concerns Verbalized understanding and agreed with the plan (4) Numerous moles: Code(s): D22.9 - Melanocytic nevi, unspecified Plan: Moles to various areas She has dermatology appointment for skin check Orders: Orders Lipid Panel 3 Months E78.00 - Pure hypercholesterolemia, unspecified Hemoglobin A1c 3 Months R73.03 - Prediabetes Referrals Vascular Surgery Referral I83.90 - Asymptomatic varicose veins of unspecified lower extremity Coding Level of Care Code Est Pt Level 4 (58400) Est Pt Prev Care 40-64y(55940) Diagnoses Normal physical examination, routine Z00.00 Varicose vein of leg I83.90 Morbid obesity with body mass index (BMI) of 40.0 to 49.9 E66.01 Numerous moles D22.9 Additional Codes AUBREY-7 Assessment Billing - AUBREY-7 Assessment Tool: AUBREY-7 Assessment [id number] ([id number])
== END 2023-08-27 09:05 | disposition home or self-care (01) ==
PROVIDERS: PCP Nurse Practitioner Family; Visit Provider Nurse Practitioner Family
DX: Z00.00 Encounter for general adult medical examination without abnormal findings (principal); E66.01 Morbid (severe) obesity due to excess calories; Z68.42 Body mass index [BMI] 45.0-49.9, adult; I83.90 Asymptomatic varicose veins of unspecified lower extremity; D22.9 Melanocytic nevi, unspecified
CPT/HCPCS: 99396

== ENCOUNTER 2023-12-21 06:27 | Outpatient (REF) | payer OTHER, SELFPAY ==
[2023-12-21 07:33] LABS: Estimated Average Glucose 123 mg/dL; Hemoglobin A1c % 5.9 % (<6.0)
[2023-12-21 07:41] LABS: Cholesterol 197 mg/dL (<200); HDL Cholesterol 46 mg/dL (>40); LDL Cholesterol Calculated 131 mg/dL (<100); Triglycerides 103 mg/dL (<150)
== END 2023-12-21 06:28 | disposition home or self-care (01) ==
LOC: HO.LAB 06:27
PROVIDERS: PCP Nurse Practitioner Family; Visit Provider Nurse Practitioner Family
DX: E78.00 Pure hypercholesterolemia, unspecified (principal); R73.03 Prediabetes
CPT/HCPCS: 36415; 80061; 83036

== ENCOUNTER 2023-12-25 16:23 | Outpatient (AMB) | payer OTHER, SELFPAY ==
--- NOTE | 2023-12-25 16:26 | MHC.PC.OV ---
Vital Signs 12/25/23 16:31 Height 5 ft 4 in Weight 254 lb 6 oz BMI 43.7 BP 128/72 Blood Pressure Location Lt brachial Position Sitting Respiration 16 Pulse 84 Pulse Source Pulse Oximeter Temp 98.1 F Temp Source Oral Pulse Oximetry (%) 96 Oxygen Delivery Method Room Air Intake Visit Reasons: f/u blood sugar Intake Note: patient here for follow up HTN, Blood sugar. Guard Captain Required: No Is last menstrual period known: Yes Last menstrual period: 12/25/23 Post menopausal: No Patient : No Allergies sulfamethoxazole [From BACTRIM] Allergy (Intermediate, Verified 12/25/23 16:37) itching, itchy mouth trimethoprim [From BACTRIM] Allergy (Intermediate, Verified 12/25/23 16:37) itching, itchy mouth Medication List - Last Reconciled 12/25/23 by Lottie Trevino CNP amlodipine 10 mg PO DAILY 30 days fluticasone propionate 50 mcg/actuation 1 spray intranasal DAILY lisinopril 40 mg PO DAILY 30 days Tobacco use date assessed: 12/25/23 Dental Screening Dental Screen Date: 12/25/23 Did you have a dental visit in the last 12 months?: Yes Did you have a dental problem in the last 6 months where you did not have access to dental care?: No Was dental information given to patient?: Patient has dentist HPI HPI Comments History of Present Illness Details 38-year-old female presents for hypertension, hypercholesterolemia, and prediabetes follow-up She admits to taking her medications as prescribed without adverse reactions She offers no complaints and denies acute symptoms at this time [facility] Medical History Back abscess Essential hypertension Surgical History History of removal of cyst [place] teeth extracted Family History (Updated 08/27/23 @ 08:43 by NOY Fuchs) Mother HTN (hypertension) Irregular heart beat Diabetes Father Heart attack Brother Brain cancer Paternal Grandfather Heart disease Paternal Grandmother Breast cancer Social History (Updated 08/27/23 @ 08:44 by NOY Fuchs) Household Members: Spouse Housing: House Alcohol intake: current Alcohol intake frequency: a few times a week Alcohol type: beer Patient Tobacco Use Status: Never used Tobacco e-Cigarette/Vaping Use: Never Used Patient : No service: No Current occupational status: employed 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 Gold Espinosa, Naheed Carrasquillo, Joe Brush and colleagues, with an educational kelly from [employer]. Review of Systems Const Details: Const Denies chills, Denies fatigue, Denies fever(s), Denies headache(s) and Denies weakness ENT Denies dizziness and Denies headache(s) Card Denies chest pain, Denies lightheadedness, Denies dyspnea and Denies other (Palpitations) Resp Denies cough, Denies dyspnea, Denies wheezing and Denies other ( shortness of breath) GI Denies abdominal pain, Denies melena, Denies hematochezia, Denies change in bowel habits, Denies dyspepsia and Denies nausea Denies hematuria and Denies dysuria Musc Denies abnormal gait, Denies myalgias, Denies arthralgias, Denies numbness and Denies tingling Skin/Breast Denies rash, Denies unusual bruising and Denies wounds Neuro Denies abnormal gait, Denies dizziness, Denies headache(s), Denies memory loss, Denies numbness, Denies Sensory deficit (Neuro), Denies tingling and Denies weakness Psych Denies anxiety, Denies depression, Denies memory loss Endo Denies cold intolerance, Denies fatigue, Denies heat intolerance, Denies polydipsia and Denies polyuria Aller/Immun Denies wheezing Physical exam (Primary Care) Vital Signs: Last Vital Signs Temp 98.1 F 12/25/23 16:31 Pulse 84 12/25/23 16:31 Resp 16 12/25/23 16:31 BP 128/72 12/25/23 16:31 Pulse Ox 96 12/25/23 16:31 Oxygen Delivery Method Room Air 12/25/23 16:31 BMI result Body Mass Index 43.7 Tobacco/Smoking Status: Tobacco use Status Tobacco use date assessed 12/25/23 12/25/23 16:35 Patient Tobacco Use Status Never used Tobacco 12/25/23 16:28 e-Cigarette/Vaping Use Never Used 12/25/23 16:28 Thrive Assessment: Date of Thrive Assessment Date Thrive assessed 08/27/23 12/25/23 16:28 Const Other: General: no acute distress and well developed Nutritional Appearance: well nourished Orientation/consciousness: patient oriented x3 [facility] Head: Yes normocephalic and Yes atraumatic Eyes General: appearance normal, both eyes and all related structures Pupils: Equal, round and reactive pupils present EOM: EOMs intact bilaterally Resp Effort & Inspection: normal respiratory effort Auscultation: clear to auscultation bilaterally Cardio Rate: regular rate Rhythm: regular rhythm Heart sounds: S1 normal heart sound present, S2 normal heart sound present, no gallops, no murmurs and no rubs GI Palpation (GI): No Abdominal aortic bruit present, Soft to palpation, nontender, No hepatosplenomegaly present and No Rebound tenderness present Auscultation: normal bowel sounds General: Yes no CVA tenderness Back/Spine/Pelvis Back: no CVA tenderness Cervical Spine: cervical ROM normal and No Cervical spine tenderness Thoracic/Lumbar Spine: thoraco-lumbar ROM normal, No pain with thoraco-lumbar ROM, No thoracic spinal tenderness and No lumbar spinal tenderness Extrem General: Yes normal to inspection, No edema and No calf tenderness Skin General: warm and dry. Normal skin color. Normal skin turgor Neuro General: patient oriented x3, gait normal and no focal neuro deficit Cranial nerves: Yes Equal, round and reactive pupils present Cognition (Neuro): normal cognition Gait exam (Neuro): Normal gait present Sensory Exam: No Sensory deficit (Neuro) Psych Appearance: grossly normal Affect: normal affect Attitude: cooperative Thought process: Normal thought process present Assessment and Plan Assessment & Plan (1) Essential hypertension: Code(s): I10 - Essential (primary) hypertension Plan: Blood pressure today is 128/72, within goal of less than 140/90 Continue current treatment regimen Low-sodium diet encouraged Follow-up in 3 months for hypertension and hypercholesterolemia or sooner with symptoms or concerns Verbalized understanding and agreed with the treatment plan (2) Hypercholesterolemia: Code(s): E78.00 - Pure hypercholesterolemia, unspecified Plan: Recent labs reviewed with the patient. Lipid panel with significant improvement. LDL is slightly elevated, 131; triglycerides, total cholesterol, and LDL levels are normal Advised to limit foods high in saturated fat and avoid foods high in trans fat Routine exercise encouraged Advised to fast for 10-12 hours, may drink water only, and get blood work done before her next visit Follow-up in 3 months Verbalized understanding and agreed with the plan (3) Pre-diabetes: Code(s): R73.03 - Prediabetes Plan: Recent A1c is 5.9%. Previous A1c was 6.1% Healthy diet and routine exercise encouraged Will monitor A1c level periodically Verbalized understanding and agreed with the treatment plan Orders: Orders Lipid Panel 3 Months E78.00 - Pure hypercholesterolemia, unspecified Coding Level of Care Code Est Pt Level 4 (84588) Diagnoses Essential hypertension I10 Hypercholesterolemia E78.00 Pre-diabetes R73.03
[2023-12-25 16:31] VITALS: BP 128/72; PULSE 84; RESP 16; TEMP 36.7; O2SAT 96; BMI 43.7
== END 2023-12-25 16:50 | disposition home or self-care (01) ==
PROVIDERS: PCP Nurse Practitioner Family; Visit Provider Nurse Practitioner Family
DX: I10 Essential (primary) hypertension (principal); E78.00 Pure hypercholesterolemia, unspecified; R73.03 Prediabetes
CPT/HCPCS: 99214

== ENCOUNTER 2024-01-30 10:34 | Outpatient (REF) | payer OTHER, SELFPAY ==
[2024-01-30 13:30] LABS: Influenza A PCR NEGATIVE (Negative); Influenza B PCR NEGATIVE (Negative); Resp Syncy Virus RNA Qual PCR NEGATIVE (Negative); SARS COV2 PCR INHOUSE NEGATIVE (Negative)
== END 2024-01-30 10:35 | disposition home or self-care (01) ==
LOC: HO.LAB 10:34
PROVIDERS: PCP Nurse Practitioner Family; Visit Provider Nurse Practitioner Family
DX: R05.9 Cough, unspecified (principal); J40 Bronchitis, not specified as acute or chronic; R09.89 Other specified symptoms and signs involving the circulatory and respiratory systems
CPT/HCPCS: 0241U

== ENCOUNTER 2024-01-30 10:34 | Outpatient (AMB) | payer OTHER, SELFPAY ==
--- NOTE | 2024-01-30 10:39 | MHC.PC.OV ---
Vital Signs 01/30/24 10:47 Height 5 ft 4 in Weight 250 lb 4 oz BMI 43.0 BP 122/78 Blood Pressure Location Lt brachial Position Sitting Respiration 16 Pulse 78 Pulse Source Pulse Oximeter Temp 99.2 F Temp Source Oral Pulse Oximetry (%) 98 Oxygen Delivery Method Room Air Intake Visit Reasons: Chest Congestion Intake Note: patient here c/o chest congestion for 2 weeks and withing the last week it has gotten worst. 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 Is last menstrual period known: Yes Last menstrual period: 12/30/23 Post menopausal: No Patient : No Allergies sulfamethoxazole [From BACTRIM] Allergy (Intermediate, Verified 01/30/24 10:56) itching, itchy mouth trimethoprim [From BACTRIM] Allergy (Intermediate, Verified 01/30/24 10:56) itching, itchy mouth Medication List - Last Reconciled 01/30/24 by Lottie Trevino CNP amlodipine 10 mg PO DAILY 30 days fluticasone propionate 50 mcg/actuation 1 spray intranasal DAILY lisinopril 40 mg PO DAILY 30 days Tobacco use date assessed: 01/30/24 Dental Screening Dental Screen Date: 01/30/24 Did you have a dental visit in the last 12 months?: Yes Did you have a dental problem in the last 6 months where you did not have access to dental care?: No Was dental information given to patient?: Patient has dentist HPI HPI Comments History of Present Illness Details 38-year-old female presents with complaints of productive cough with yellow phlegm and chest congestion for the past 2 weeks. She notes initial fever and nasal congestion which resolved. Her symptoms are progressively worsened and refractory to mucinex. She notes difficulty breathing at times. She reports sick contact. She had a negative home covid test. No sore throat. constitutional symptoms. No fatigue or weakness. [facility] Medical History Back abscess Essential hypertension Surgical History History of removal of cyst [place] teeth extracted Family History (Updated 08/27/23 @ 08:43 by NOY Fuchs) Mother HTN (hypertension) Irregular heart beat Diabetes Father Heart attack Brother Brain cancer Paternal Grandfather Heart disease Paternal Grandmother Breast cancer Social History (Updated 08/27/23 @ 08:44 by Joyce Webber [facility]) Household Members: Spouse Housing: House Alcohol intake: current Alcohol intake frequency: a few times a week Alcohol type: beer Patient Tobacco Use Status: Never used Tobacco e-Cigarette/Vaping Use: Never Used Second Hand Smoke Exposure: No Patient : No service: No Current occupational status: employed 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 Gold Espinosa, Naheed Carrasquillo, Joe Brush and colleagues, with an educational kelly from [employer]. Review of Systems Const Details: Const Denies chills, Denies fatigue, Denies fever(s), Denies headache(s) and Denies weakness ENT Reports as per HPI Card Denies chest pain, Denies lightheadedness, Reports dyspnea and Denies other (Palpitations) Resp Denies wheezing and Denies other ( shortness of breath) Skin/Breast Denies rash, Denies unusual bruising and Denies wounds Neuro Denies abnormal gait, Denies dizziness, Denies headache(s), Denies memory loss, Denies numbness, Denies Sensory deficit (Neuro), Denies tingling and Denies weakness Aller/Immun Denies wheezing Physical exam (Primary Care) Vital Signs: Last Vital Signs Temp 99.2 F 01/30/24 10:47 Pulse 78 01/30/24 10:47 Resp 16 01/30/24 10:47 BP 122/78 01/30/24 10:47 Pulse Ox 98 01/30/24 10:47 Oxygen Delivery Method Room Air 01/30/24 10:47 BMI result Body Mass Index 43.0 Tobacco/Smoking Status: Tobacco use Status Tobacco use date assessed 01/30/24 01/30/24 10:47 Patient Tobacco Use Status Never used Tobacco 01/30/24 10:41 e-Cigarette/Vaping Use Never Used 01/30/24 10:41 Thrive Assessment: Date of Thrive Assessment Date Thrive assessed 08/27/23 01/30/24 10:41 Const Other: General: no acute distress and well developed Nutritional Appearance: well nourished Orientation/consciousness: patient oriented x3 HENMT Head is normocephalic Bilateral ear canal and TM are normal Nasal turbinates and oropharynx are pink and moist Sinuses are nontender with palpation No auricular or cervical lymphadenopathy Eyes General: appearance normal, both eyes and all related structures Pupils: Equal, round and reactive pupils present EOM: EOMs intact bilaterally Resp Effort & Inspection: normal respiratory effort Auscultation: Slight wheezing to auscultation bilaterally Cardio Rate: regular rate Rhythm: regular rhythm Heart sounds: S1 normal heart sound present, S2 normal heart sound present, no gallops, no murmurs and no rubs Skin General: warm and dry. Normal skin color. Normal skin turgor Neuro General: patient oriented x3, gait normal and no focal neuro deficit Cranial nerves: Yes Equal, round and reactive pupils present Cognition (Neuro): normal cognition Gait exam (Neuro): Normal gait present Sensory Exam: No Sensory deficit (Neuro) Psych Appearance: grossly normal Affect: normal affect Attitude: cooperative Thought process: Normal thought process present Assessment and Plan Assessment & Plan (1) Cough: Code(s): R05.9 - Cough, unspecified Plan: Patient presents with productive cough with yellow phlegm and chest congestion for the past 2 weeks; associated difficulty breathing; symptoms progressively worsened Lung with slight wheezing bilaterally Likely bronchitis secondary to viral infection Prednisone and albuterol inhaler ordered. Advised to take as prescribed Adequate hydration encouraged Nasal swab collected and will be tested for COVID, flu, and RSV Follow-up with worsening or new symptoms Verbalized understanding and agreed with the plan (2) Bronchitis: Code(s): J40 - Bronchitis, not specified as acute or chronic Plan: Plan as above Orders: Orders SARS-CoV2/FLU/RSV Today R05.9 - Cough, unspecified Medications: New albuterol sulfate 90 mcg/actuation 2 puffs inhalation Q4-6H PRN 8.5 grams 0RF shortness of breath or wheezing prednisone 40 mg (2 x 20 mg) PO DAILY 5 days 10 tabs 0RF Coding Level of Care Code Est Pt Level 4 (96734) Diagnoses Cough R05.9 Bronchitis J40
[2024-01-30 10:47] VITALS: BP 122/78; PULSE 78; RESP 16; TEMP 37.3; O2SAT 98; BMI 43.0
== END 2024-01-30 11:19 | disposition home or self-care (01) ==
PROVIDERS: PCP Nurse Practitioner Family; Visit Provider Nurse Practitioner Family
DX: R05.9 Cough, unspecified (principal); J40 Bronchitis, not specified as acute or chronic

== ENCOUNTER 2024-02-06 08:20 | Outpatient (REF) | payer OTHER, SELFPAY ==
--- NOTE | ~2024-02-06 | XR_ITS ---
EXAMINATION: XR CHEST CLINICAL INFORMATION: Cough COMPARISON: 05/31/2022 TECHNIQUE: 2 views of the chest were obtained. FINDINGS: No focal consolidation, pulmonary edema, or pleural effusion. Stable cardiomediastinal silhouette. XR/XR chest 2V IMPRESSION: No acute cardiopulmonary findings. Electronically signed by: Joselo Roche MD 02/06/2024 10:51 AM EDT
== END 2024-02-06 08:21 | disposition home or self-care (01) ==
LOC: HO.XRAY 08:20
PROVIDERS: PCP Nurse Practitioner Family; Visit Provider Nurse Practitioner Family
DX: R05.9 Cough, unspecified (principal)
CPT/HCPCS: 71046

== ENCOUNTER 2024-02-06 08:20 | Outpatient (AMB) | payer OTHER, SELFPAY ==
--- NOTE | 2024-02-06 08:22 | MHC.PC.OV ---
Vital Signs 02/06/24 08:29 Height 5 ft 4 in Weight 246 lb BMI 42.2 BP 118/82 Blood Pressure Location Lt brachial Position Sitting Respiration 16 Pulse 87 Pulse Source Pulse Oximeter Temp 99.6 F Temp Source Oral Pulse Oximetry (%) 96 Oxygen Delivery Method Room Air Intake Visit Reasons: Bronchitis/Congested Intake Note: patient here c/o congestion and having bronchitis. 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 Is last menstrual period known: Yes Last menstrual period: 01/07/24 Post menopausal: No Patient : No Allergies sulfamethoxazole [From BACTRIM] Allergy (Intermediate, Verified 02/06/24 08:42) itching, itchy mouth trimethoprim [From BACTRIM] Allergy (Intermediate, Verified 02/06/24 08:42) itching, itchy mouth Medication List - Last Reconciled 02/06/24 by Lottie Trevino CNP albuterol sulfate 90 mcg/actuation 2 puffs inhalation Q4-6H PRN amlodipine 10 mg PO DAILY 30 days fluticasone propionate 50 mcg/actuation 1 spray intranasal DAILY lisinopril 40 mg PO DAILY 30 days Tobacco use date assessed: 02/06/24 Dental Screening Dental Screen Date: 01/30/24 Did you have a dental visit in the last 12 months?: Yes Did you have a dental problem in the last 6 months where you did not have access to dental care?: No Was dental information given to patient?: Patient has dentist HPI HPI Comments History of Present Illness Details 38-year-old female presents with complaints of worsening cough and chest congestion. Her symptoms have been ongoing for the past 3 weeks. He was evaluated for similar complaints on 01/30/2024. She was treated for bronchitis with prednisone and albuterol inhaler. COVID/flu/RSV test were negative. She finished the course of prednisone and has been using the inhaler as needed. She notes that her symptoms have been unchanged. She continues to cough up yellow phelm. She notes associated post nasal drip and intermittent wheezing. She recently stopped taking mucinex because it was ineffective. She denies fever, chills, body aches, fatigue, weakness. She notes positive sick contact. [facility] Medical History Back abscess Essential hypertension Surgical History History of removal of cyst [place] teeth extracted Family History (Updated 08/27/23 @ 08:43 by NOY Fuchs) Mother HTN (hypertension) Irregular heart beat Diabetes Father Heart attack Brother Brain cancer Paternal Grandfather Heart disease Paternal Grandmother Breast cancer Social History (Updated 08/27/23 @ 08:44 by NOY Fuchs) Household Members: Spouse Housing: House Alcohol intake: current Alcohol intake frequency: a few times a week Alcohol type: beer Patient Tobacco Use Status: Never used Tobacco e-Cigarette/Vaping Use: Never Used Second Hand Smoke Exposure: No Patient : No service: No Current occupational status: employed 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 Gold Espinosa, Naheed Carrasquillo, Joe Brush and colleagues, with an educational kelly from [employer]. Review of Systems Const Details: Const Denies chills, Denies fatigue, Denies fever(s), Denies headache(s) and Denies weakness ENT Reports as per HPI Card Denies chest pain, Denies lightheadedness, Denies dyspnea and Denies other (Palpitations) Resp Reports cough, Denies dyspnea, Denies wheezing and Denies other ( shortness of breath) GI Denies abdominal pain, Denies melena, Denies hematochezia, Denies change in bowel habits, Denies dyspepsia and Denies nausea Denies hematuria and Denies dysuria Musc Denies abnormal gait, Denies myalgias, Denies arthralgias, Denies numbness and Denies tingling Skin/Breast Denies rash, Denies unusual bruising and Denies wounds Neuro Denies abnormal gait, Denies dizziness, Denies headache(s), Denies memory loss, Denies numbness, Denies Sensory deficit (Neuro), Denies tingling and Denies weakness Endo Denies cold intolerance, Denies fatigue, Denies heat intolerance, Denies polydipsia and Denies polyuria Aller/Immun Denies wheezing Physical exam (Primary Care) Vital Signs: Last Vital Signs Temp 99.6 F 02/06/24 08:29 Pulse 87 02/06/24 08:29 Resp 16 02/06/24 08:29 BP 118/82 02/06/24 08:29 Pulse Ox 96 02/06/24 08:29 Oxygen Delivery Method Room Air 02/06/24 08:29 BMI result Body Mass Index 42.2 Tobacco/Smoking Status: Tobacco use Status Tobacco use date assessed 02/06/24 02/06/24 08:32 Patient Tobacco Use Status Never used Tobacco 02/06/24 08:25 e-Cigarette/Vaping Use Never Used 02/06/24 08:25 Thrive Assessment: Date of Thrive Assessment Date Thrive assessed 08/27/23 02/06/24 08:25 Const Other: General: no acute distress and well developed Nutritional Appearance: well nourished Orientation/consciousness: patient oriented x3 HENMT Head is normocephalic Bilateral ear canal and TM are normal Nasal turbinates and oropharynx are pink and moist Sinuses are nontender with palpation No auricular or cervical lymphadenopathy Eyes General: appearance normal, both eyes and all related structures Pupils: Equal, round and reactive pupils present EOM: EOMs intact bilaterally Resp Effort & Inspection: normal respiratory effort Auscultation: Moderate wheezing to auscultation bilaterally Cardio Rate: regular rate Rhythm: regular rhythm Heart sounds: S1 normal heart sound present, S2 normal heart sound present, no gallops, no murmurs and no rubs GI Palpation (GI): No Abdominal aortic bruit present, Soft to palpation, nontender, No hepatosplenomegaly present and No Rebound tenderness present Auscultation: normal bowel sounds General: Yes no CVA tenderness Back/Spine/Pelvis Back: no CVA tenderness Extrem General: Yes normal to inspection, No edema and No calf tenderness Skin General: warm and dry. Normal skin color. Normal skin turgor Neuro General: patient oriented x3, gait normal and no focal neuro deficit Cranial nerves: Yes Equal, round and reactive pupils present Cognition (Neuro): normal cognition Gait exam (Neuro): Normal gait present Sensory Exam: No Sensory deficit (Neuro) Psych Appearance: grossly normal Affect: normal affect Attitude: cooperative Thought process: Normal thought process present Coding Level of Care Code Est Pt Level 3 (87735) Diagnoses Cough R05.9 Assessment & Plan Assessment & Plan (1) Cough: Code(s): R05.9 - Cough, unspecified Category: Medical Plan: Reports to productive cough with yellow phlegm x3 weeks. Symptoms have been unchanged. COVID/flu/RSV test were negative. She completed a course of prednisone without improvement. She is also using albuterol inhaler. No constitutional symptoms Moderate wheezing to auscultation bilaterally Viral illness or allergies is likely. Pneumonia is possible Azithromycin, Zyrtec, and benzonatate as prescribed Continue to use albuterol inhaler as prescribed Adequate hydration and rest encouraged Chest x-ray ordered Follow-up with worsening or new symptoms Verbalized understanding and agreed with the plan Orders: Orders XR chest 2V Today R05.9 - Cough, unspecified Medications: New benzonatate 100 mg PO BID PRN 20 caps 0RF cough azithromycin 500 mg PO DAILY 5 days 5 tabs 0RF cetirizine (Zyrtec) 10 mg PO DAILY 30 days 30 tabs 0RF
[2024-02-06 08:29] VITALS: BP 118/82; PULSE 87; RESP 16; TEMP 37.6; O2SAT 96; BMI 42.2
== END 2024-02-06 09:32 | disposition home or self-care (01) ==
PROVIDERS: PCP Nurse Practitioner Family; Visit Provider Nurse Practitioner Family
DX: R05.9 Cough, unspecified (principal)

== ENCOUNTER 2025-04-10 09:55 | Outpatient (AMB) | payer OTHER, SELFPAY ==
[2025-04-10 09:58] VITALS: BP 142/90; PULSE 104; TEMP 36.4; O2SAT 99; BMI 43.4
--- NOTE | 2025-04-10 09:58 | MHC.OFFWIV ---
Intake Vital Signs 04/10/25 09:58 Height 5 ft 4 in Weight 253 lb BMI 43.4 BP 142/90 H Blood Pressure Location Rt brachial Position Sitting Pulse 104 H Pulse Source Pulse Oximeter Temp 97.6 F Temp Source Oral Pulse Oximetry (%) 99 Oxygen Delivery Method Room Air Intake Visit Reasons: EP left shoulder pain Intake Note: pt presents with left shoulder pain raidiating into left forearm and some upper left back pain Patient Tobacco Use Status: Never used Tobacco Allergies sulfamethoxazole (From BACTRIM) Allergy (Intermediate, Verified 04/10/25 10:03) itching, itchy mouth trimethoprim (From BACTRIM) Allergy (Intermediate, Verified 04/10/25 10:03) itching, itchy mouth Do you need a note to return to daycare/school/sports/work: Yes HPI HPI Comments History of Present Illness Details This is a 40-year-old female who presented to the walk-in clinic complaining of left shoulder pain x 1.5 days. Patient states she started to develop left shoulder pain radiating into her left upper back and down her left arm while she was sleeping 2 nights ago. 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 She states the pain starts at the posterior left shoulder and radiates into her left scapula and down her left arm. She does report some weakness of her left arm but denies any numbness or paresthesias. She denies any chest pain or shortness of breath. She denies any abdominal pain or nausea/vomiting/diarrhea. [facility] Medical History Back abscess Essential hypertension Surgical History History of removal of cyst [place] teeth extracted Family History (Updated 08/27/23 @ 08:43 by NOY Fuchs) Mother HTN (hypertension) Irregular heart beat Diabetes Father Heart attack Brother Brain cancer Paternal Grandfather Heart disease Paternal Grandmother Breast cancer Social History (Updated 08/27/23 @ 08:44 by NOY Fuchs) Household Members: Spouse Housing: House Alcohol intake: current Alcohol intake frequency: a few times a week Alcohol type: beer Patient Tobacco Use Status: Never used Tobacco e-Cigarette/Vaping Use: Never Used Second Hand Smoke Exposure: No service: No Current occupational status: employed 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 Cognitive needs: No Hearing needs: No Vision needs: No Review of Systems Const All systems reviewed & are unremarkable except as noted in HPI and below Reports no additional complaints Eyes Reports no additional complaints ENT Reports no additional complaints Card Reports no additional complaints Resp Reports no additional complaints GI Reports no additional complaints Reports no additional complaints Musc Reports no additional complaints Skin/Breast Reports system reviewed and no additional complaints, except as documented Neuro Reports no additional complaints Psych Reports no additional complaints Endo Reports no additional complaints Zia/Lymph Reports no additional complaints Aller/Immun Reports no additional complaints Physical Exam Exam Exam: Vital signs reviewed. Constitutional: Non-toxic appearing. No acute distress. Well-developed and well-nourished. HEENT: Normocephalic and atraumatic. PERRL/EOMI. Skin: Warm and dry. No rashes or lesions noted. Neck: Full and painless range of motion. No cervical lymphadenopathy. Cardio: Regular rate and rhythm. No murmurs, gallops, or rubs. No lower extremity edema. No JVD. Pulmonary: No respiratory distress. No accessory muscle usage. Gastrointestinal: Soft, non-tender, and non-distended in all 4 quadrants. Musculoskeletal: She has a positive Neer test with pain at approximately 90? of forward flexion. She has reduced range of motion of the left shoulder with forward flexion and abduction due to pain, she has painful but full internal and external rotation. She has mild (4+/5) weakness of the left shoulder with forward flexion and abduction. Neuro: Alert and oriented x4. Cranial nerves 2-12 grossly intact. No focal deficits appreciated. Psych: Normal mood and affect. Vital Signs: Last Vital Signs Temp 97.6 F 04/10/25 09:58 Pulse 104 H 04/10/25 09:58 BP 142/90 H 04/10/25 09:58 Pulse Ox 99 04/10/25 09:58 Oxygen Delivery Method Room Air 04/10/25 09:58 BMI result Body Mass Index 43.4 Office Procedures EKG Details: Normal sinus rhythm at 89 beats per minute, no ST or T-wave changes [id number], Complete Assessment & Plan Assessment & Plan (1) Impingement of left shoulder: Code(s): M25.812 - Other specified joint disorders, left shoulder Plan 40-year-old female who presented to the walk-in clinic complaining of left shoulder pain x 1.5 days. On physical examination, patient has a positive Neer test with mild weakness and reduced range of motion of the left shoulder with forward flexion and abduction. History and physical most consistent with impingement left shoulder likely related to repetitive overhead motions at work. Recommended supportive management such as rest/ activity modification, ice/heat to the area, scheduled anti-inflammatory treatment with PO naproxen 500 mg twice daily as well as PO acetaminphen 975 mg every 8 hours for breakthrough pain, and gentle range of motion and stretching exercises. Imaging was considered but deferred at this time given extremely low suspicion for any fracture/ dislocation or other bony abnormality. Patient was instructed to follow-up here in 1 week if symptoms do not improve for re-evaluation for possible PT or orthopedics referral as indicated. Patient verbalized understanding and she is in agreement with the plan. Orders: Orders AMB EKG-In Office Today Z13.6 - Encounter for screening for cardiovascular disorders Coding Level of Care Code Est Pt Level 3 (43843) Diagnoses Impingement of left shoulder M25.812 CPT Codes EKG - CPT: 78782-[id number], Complete ([id number])
== END 2025-04-10 11:17 | disposition home or self-care (01) ==
PROVIDERS: PCP Nurse Practitioner Family; Visit Provider Physician Assistant Medical
DX: M25.812 Other specified joint disorders, left shoulder (principal)

== ENCOUNTER → 2025-04-10 09:55 | Outpatient (BNVA) | payer OTHER, SELFPAY | PROVIDERS: PCP Nurse Practitioner Family; Visit Provider Physician Assistant Medical | DX: M25.812 Other specified joint disorders, left shoulder (principal); Z79.899 Other long term (current) drug therapy | CPT/HCPCS: 93005 ==

== ENCOUNTER 2025-04-14 08:41 | Outpatient (REF) | payer OTHER, SELFPAY ==
[2025-04-14 10:58] LABS: MANUAL DIFF FLAG NO
[2025-04-14 11:07] LABS: Hematocrit 41.3 % (37.0-47.0); Hemoglobin 13.7 g/dl (12.0-16.0); Imm Gran Abs Auto 0.02 X10*3/uL (0.00-0.03); Imm Gran Pct Auto 0.3 % (0.0-0.4); Lymphocytes Absolute Auto 1.5 X10*3/uL (1.2-4.9); Mean Corpuscular HGB Conc 33.2 g/dl (31.0-35.0); Mean Corpuscular Hemoglobin 30.0 pg (27.0-33.0); Mean Corpuscular Volume 90.4 fL (80.0-98.0); NRBC Abs Auto 0.000 X10*3/uL (0.0-0.012); NRBC Pct Auto 0.0 /100WBC (0.0-0.2); Platelet Count 310 X10*3/uL (160-400); Red Blood Count 4.57 X10*6/uL (4.20-5.50); White Blood Count 6.0 X10*3/uL (4.8-10.8)
[2025-04-14 11:23] LABS: Alanine Aminotransferase 27 U/L (0-31); Albumin Level 4.5 g/dL (3.5-5.0); Alkaline Phosphatase 110 U/L (39-117); Anion Gap 14 (12-20); Aspartate Amino Transferase 24 U/L (5-31); Blood Urea Nitrogen 14 mg/dL (9-16); Calcium 9.5 mg/dL (8.4-10.2); Carbon Dioxide 24 mmol/L (22-29); Chloride 105 mmol/L (96-108); Cholesterol 256 mg/dL (<200); Estimated Glomerular Filt Rate > 60; HDL Cholesterol 57 mg/dL (>40); Potassium 4.5 mmol/L (3.3-5.1); Sodium 138 mmol/L (135-145); Total Protein 7.4 g/dL (6.5-8.0); Triglycerides 211 mg/dL (<150)
== END 2025-04-14 08:42 | disposition home or self-care (01) ==
LOC: HO.WFDLDS 08:41
PROVIDERS: PCP Nurse Practitioner Family; Visit Provider Nurse Practitioner Family
DX: Z00.00 Encounter for general adult medical examination without abnormal findings (principal); Z23 Encounter for immunization; Z12.4 Encounter for screening for malignant neoplasm of cervix; Z12.31 Encounter for screening mammogram for malignant neoplasm of breast; I10 Essential (primary) hypertension; E66.01 Morbid (severe) obesity due to excess calories; M25.512 Pain in left shoulder; Z68.41 Body mass index [BMI] 40.0-44.9, adult
CPT/HCPCS: 36415; 80053; 80061; 82306; 83036; 84443; 85025; 90471; 90472; 90656; 90715; 96127

== ENCOUNTER 2025-04-14 08:41 | Outpatient (AMB) | payer OTHER, SELFPAY ==
--- NOTE | 2025-04-14 08:44 | MHC.PC.OV ---
Vital Signs 04/14/25 08:54 04/14/25 09:12 Height 5 ft 4 in Weight 256 lb 8 oz BMI 44.0 BP 141/83 H 140/80 H Blood Pressure Location Lt brachial Lt brachial Position Sitting Sitting Respiration 16 Pulse 71 Pulse Source Pulse Oximeter Temp 97.9 F Temp Source Oral Pulse Oximetry (%) 100 Oxygen Delivery Method Room Air Intake Visit Reasons: Physical Intake Note: patient here for CPE Medical Record Specialist Required: No Is last menstrual period known: Yes Last menstrual period: 03/26/25 Post menopausal: No Patient : No Allergies sulfamethoxazole (From BACTRIM) Allergy (Intermediate, Verified 04/14/25 09:07) itching, itchy mouth trimethoprim (From BACTRIM) Allergy (Intermediate, Verified 04/14/25 09:07) itching, itchy mouth Medication List - Last Reconciled 04/14/25 by Lottie Trevino CNP albuterol sulfate 90 mcg/actuation 2 puffs inhalation Q4-6H PRN amlodipine 10 mg PO DAILY 30 days cetirizine 10 mg PO DAILY PRN lisinopril 40 mg PO DAILY 30 days methocarbamol 750 mg PO TID PRN multivitamin (Daily Multi-Vitamin tablet) 1 tab PO DAILY Tobacco use date assessed: 04/14/25 Dental Screening Dental Screen Date: 04/14/25 Did you have a dental visit in the last 12 months?: Yes Did you have a dental problem in the last 6 months where you did not have access to dental care?: No Was dental information given to patient?: Patient has dentist HPI HPI Comments History of Present Illness Details 40-year-old female presents for an extended physical exam. She admits to taking her medications as prescribed without adverse reactions. However, she forgot to take her medications before she left her home this morning. Acute issue(s) - Reports atraumatic left shoulder pain for the past 1 week. She describes the pain as pinching. She was evaluated at the [facility] walk-in clinic and was prescribed methocarbamol she has not taken much. She takes Aleve as needed. She reports improvement in the pain. Past Medical History - Prediabetes, hypercholesterolemia, morbid obesity, hypertension, palpitations, varicose vein left leg, sebaceous cyst. Social History - Nonsmoker. Does not vape. Drinks 2 beers 3 times weekly. Denies recreational drug use - Has been making unhealthy dietary choices and gained 17 lbs in the past 3 months. She noes not exercise. Generally sleep well Health maintenance - Last eye exam was in 04/2024 [facility]. She will schedule an appointment with them for an eye exam - Last dental visit was a couple of months ago - Last Tdap vaccine was likely more than 10 years ago; receives the Tdap vaccine today - Has not been vaccinated for the flu this season; receives vaccination today - Last pap smear test was about 4 years ago. Referred to [facility] continuous vulcanizing machine operator for a pap smear test - She has never had mammogram. Mammogram ordered Specialists - It Portfolio Manager - [facility] Medical History Back abscess Essential hypertension Surgical History History of removal of cyst [place] teeth extracted Family History Mother HTN (hypertension) Irregular heart beat Diabetes Father Heart attack Brother Brain cancer Paternal Grandfather Heart disease Paternal Grandmother Breast cancer Social History Household Members: Spouse Housing: House Alcohol intake: current Alcohol intake frequency: a few times a week Alcohol type: beer Patient Tobacco Use Status: Never used Tobacco e-Cigarette/Vaping Use: Never Used Second Hand Smoke Exposure: No service: No Current occupational status: employed 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 1. Little interest or pleasure in doing things: not at all 2. Feeling down, depressed, or hopeless: not at all 3. Trouble falling or staying asleep, or sleeping too much: not at all 4. Feeling tired or having little energy: not at all 5. Poor appetite or overeating: not at all 6. Feeling bad about yourself - or that you are a failure or have let yourself or your family down: not at all 7. Trouble concentrating on things, such as reading the newspaper or watching television: not at all 8. Moving or speaking so slowly that other people could have noticed. Or the opposite - being so fidgety or restless that you have been moving around a lot more than usual: not at all 9. Thoughts that you would be better off or of hurting yourself in some way: not at all Total score: 0 Depression Screening Interpretation: Negative Depression Screening Done: Yes 85834 - PHQ-9 Billing: Yes Source: Developed by Drs. Gold Espinosa, Naheed Carrasquillo, Joe Brush and colleagues, with an educational kelly from [employer]. Thrive Questionnaire Date Thrive assessed: 04/14/25 I am a: Patient What is your living situation today?: I have a steady place to live Within the past 12 months, did the food you bought not last and you didn't have the money to get more?: Never true Within the past 12 months, did you worry whether your food would run out before you got money to buy more?: Never true Do you have trouble paying for medicines?: No Do you have trouble getting transportation to medical appointments?: No Do you have trouble paying your heating and electricity bill?: No Do you have trouble taking care of your child, family member or friend?: No Do you have trouble with day-to-day activities such as bathing, preparing meals, shopping, managing finances, etc.?: No Are you currently unemployed and looking for a job?: No Are you interested in more education?: No Please select the resources that you would like help with: None Currently or been in a relationship where the following occur: No concerns reported THRIVE Score: 0 AUDIT C Alcohol Use Questionnaire (AUDIT-C) 1. How often do you have a drink containing alcohol?: 2-3 times a week 2. How many drinks containing alcohol do you have on a typical day when you are drinking?: 1 or 2 3. How often do you have six or more drinks on one occasion?: Less than monthly Total Score: 4 Score Reviewed/Action Taken: Yes AUBREY-7 AMB Questionnaire AUBREY-7 Date AUBREY - 7 assessed: 04/14/25 Feeling nervous, anxious, or on edge: 0 = Not at all Not being able to stop or control worryin = Not at all Worrying too much about different things: 0 = Not at all Trouble relaxin = Not at all Being so restless that it is hard to sit still: 0 = Not at all Becoming easily annoyed or irritable: 0 = Not at all Feeling afraid as if something awful might happen: 0 = Not at all Total AUBREY-7 score (0-4 normal; 5-9 mild; 10-14 moderate; 15-21 severe): 0 Source: Developed by Drs. Gold Espinosa, Naheed Carrasquillo, Joe Brush and colleagues, with an educational kelly from [employer]. Review of Systems Const Details: Denies chills, Denies fatigue, Denies fever(s), Denies headache(s) and Denies weakness HEENT Denies change in vision, Denies dizziness, Denies headache(s), Denies hearing loss, Denies nasal congestion, Denies sinus pain, Denies sinus pressure and Denies sore throat Card Denies chest pain, Denies lightheadedness, Denies dyspnea and Denies other (palpitations) Resp Denies cough, Denies dyspnea and Denies wheezing GI Denies abdominal pain, Denies melena, Denies hematochezia, Denies change in bowel habits, Denies dyspepsia and Denies nausea Denies hematuria and Denies dysuria Musc Reports left shoulder pain, Denies abnormal gait, Denies numbness and Denies tingling Skin/Breast Denies rash, Denies unusual bruising and Denies wounds Neuro Denies abnormal gait, Denies dizziness, Denies headache(s), Denies memory loss, Denies numbness, Denies Sensory deficit (Neuro), Denies tingling and Denies weakness Psych Denies anxiety, Denies depression and Denies memory loss Endo Denies cold intolerance, Denies fatigue, Denies heat intolerance, Denies polydipsia and Denies polyuria Zia/Lymph Denies easy bleeding and Denies easy bruising Aller/Immun Denies wheezing Physical exam (Primary Care) Vital Signs: Last Vital Signs Temp 97.9 F 04/14/25 08:54 Pulse 71 04/14/25 08:54 Resp 16 04/14/25 08:54 BP 140/80 H 04/14/25 09:12 Pulse Ox 100 04/14/25 08:54 Oxygen Delivery Method Room Air 04/14/25 08:54 BMI result Body Mass Index 44.0 Tobacco/Smoking Status: Tobacco use Status Tobacco use date assessed 04/14/25 04/14/25 08:58 Patient Tobacco Use Status Never used Tobacco 04/14/25 08:54 e-Cigarette/Vaping Use Never Used 04/14/25 08:54 PHQ-9: PHQ-9 Score PHQ-9: Total score 0 04/14/25 09:03 Depression Screening Interpretation: Negative Thrive Assessment: Date of Thrive Assessment Date Thrive assessed 04/14/25 04/14/25 08:52 Currently or been in a relationship where the following occur: No concerns reported Const Other: General: no acute distress, well developed, alert and awake Nutritional Appearance: well nourished Orientation/consciousness: patient oriented x3 HENMT Head: Yes normocephalic and Yes atraumatic Ears: hearing grossly normal bilaterally and TM's normal bilaterally General nose exam: Normal external nose present and Normal nares present Mouth: Normal oral and palatal mucosa present and moist mucous membranes Teeth and gingiva: dentition normal Throat: Yes oropharynx normal Eyes Pupils: Equal, round and reactive pupils present and Pupil accommodation reflex normal EOM: EOMs intact bilaterally Neck Neck: Yes normal visual inspection, Yes no lymphadenopathy and Yes trachea midline Thyroid: Thyroid normal Carotids: no bruits Lymphatic: no lymphadenopathy noted Chest Chest palpation & inspection: normal inspection of the chest Resp Effort & Inspection: normal respiratory effort Auscultation: clear to auscultation bilaterally Cardio Rate: regular rate Rhythm: regular rhythm Heart sounds: S1 normal heart sound present, S2 normal heart sound present, no gallops, no murmurs and no rubs Bruits: no abdominal aortic bruits and no carotid bruits GI Palpation (GI): No Abdominal aortic bruit present, Soft to palpation, nontender, No hepatosplenomegaly present and No Rebound tenderness present Auscultation: normal bowel sounds General: Yes no CVA tenderness Back/Spine/Pelvis Back: no CVA tenderness Cervical Spine: cervical ROM normal and No Cervical spine tenderness Thoracic/Lumbar Spine: thoraco-lumbar ROM normal, No pain with thoraco-lumbar ROM, No thoracic spinal tenderness and No lumbar spinal tenderness Skin General: warm and dry. Normal skin color. Normal skin turgor Lesions: no lesions Rashes: no rashes Trauma: no lacerations or abrasions Wounds: no wounds Nails: normal Neuro General: patient oriented x3, gait normal and CN's II-XI intact bilaterally Cranial nerves: Yes Equal, round and reactive pupils present Cognition (Neuro): normal cognition Gait exam (Neuro): Normal gait present Motor exam (neuro): 5/5 motor strength present throughout Sensory Exam: No Sensory deficit (Neuro) Deep tendon reflexes (DTR's): Right patellar reflex intensity grade: 2+ and Left patellar reflex intensity grade: 2+ Extrem General: Yes normal to inspection, No edema and No calf tenderness. Normal ROM of the left shoulder, no overt injury or trauma Psych Appearance: grossly normal Affect: normal affect Attitude: cooperative Thought process: Normal thought process present Office Procedures Flu Questionnaire Does the patient have a severe egg allergy?: No Does the patient have severe life threatening allergies?: No Does the patient have a fever or illness today?: No Has the patient ever had Guillain-Aultman Syndrome?: No Has the patient ever had any past reaction to a flu shot?: No Immunizations Fluarix [id number] (PF) 45 mcg (15 mcg x 3)/0.5 mL IM syringe Performing Provider: Lottie Trevino CNP Performing Location: [facility] Administered by: Sergei Isaacs RN on 04/14/25 09:40 Dose Route Admin Location Dispensed Lot Number Expiration Date [facility] Table Filler 0.5 mL IM Right Deltoid 0.5 mL [id number] 11/03/25 [id number] [employer] VIS Given Date VIS Provided VIS Publication Date 04/14/25 Single Vaccine 24 Eligibility Eligibility Date Funding Source Not [facility] Eligible 04/14/25 Private Boostrix Tdap 2.5 Lf unit-8 mcg-5 Lf/0.5 mL intramuscular syringe Performing Provider: Lottie Trevino CNP Performing Location: [facility] Administered by: Sergei Isaacs RN on 04/14/25 09:40 Dose Route Admin Location Dispensed Lot Number Expiration Date [facility] Table Filler 0.5 mL IM Right Deltoid 0.5 mL [id number] 10/17/1927 [id number] Total Dispensed Waste 0.5 mL 0 % VIS Given Date VIS Provided VIS Publication Date 04/14/25 Single Vaccine 20 Eligibility Eligibility Date Funding Source Not [facility] Eligible 04/14/25 Private Coding Level of Care Code Est Pt Level 4 (32428) Est Pt Prev Care 40-64y(54607) Diagnoses Normal physical examination, routine Z00.00 Essential hypertension I10 Morbid obesity with body mass index (BMI) of 40.0 to 49.9 E66.01 Left shoulder pain M25.512 Papanicolaou smear for cervical cancer screening Z12.4 Breast cancer screening by mammogram Z12.31 Laboratory tests ordered as part of a complete physical exam (CPE) Z00.00 Additional Codes PHQ-9 - 60433 - PHQ-9 Billing: Yes ([id number]) Assessment & Plan Assessment & Plan (1) Normal physical examination, routine: Code(s): Z00.00 - Encounter for general adult medical examination without abnormal findings Category: Medical Plan: No significant functional limitation noted. Continue current treatment regimen. Healthy diet and routine exercise encouraged. Perform lab work and follow-up for telehealth visit in 1 week. Follow-up in 2 months for transfer of care with a new provider within the practice. Return sooner with symptoms or concerns. Verbalized understanding and agreed with the plan. (2) Essential hypertension: Code(s): I10 - Essential (primary) hypertension Category: Medical Plan: Resting blood pressure is 140/80, slightly above goal of less than 140/90. She forgot to take her medications before leaving her home this morning. Advised to take her medications as prescribed. Low-sodium diet encouraged. Follow-up in 2 months. Verbalized understanding and agreed with the plan. (3) Morbid obesity with body mass index (BMI) of 40.0 to 49.9: Code(s): E66.01 - Morbid (severe) obesity due to excess calories Category: Medical Plan: Has been making unhealthy dietary choices and gained 17 lbs in the past 3 months. She drinks 2 beers 3 times a week. Healthy diet and routine exercise encouraged. Advised to avoid or cut down alcohol intake. No more than 1 drink daily or 5 weekly. Declines referral to seasonal recruiter/dietitian or weight management clinic at this time and notes she will start making healthy lifestyle choices when she feels motivated to do so. Follow-up as needed. Verbalized understanding and agreed with plan. (4) Left shoulder pain: Code(s): M25.512 - Pain in left shoulder Category: Medical Plan: Reports atraumatic left shoulder pain for the past 1 week. She describes the pain as pinching. She was evaluated at the [facility] walk-in clinic and was prescribed methocarbamol she has not taken much. She takes Aleve as needed. She reports improvement in the pain. Normal ROM of the left shoulder, no overt injury or trauma. Continue current treatment regimen. Warm/cool compresses encouraged. Follow-up with worsening or new symptoms. May referred to physical therapy. Verbalized understanding and agreed with the plan. (5) Papanicolaou smear for cervical cancer screening: Code(s): Z12.4 - Encounter for screening for malignant neoplasm of cervix Category: Medical Plan: Last pap smear test was about 4 years ago. Referred to [facility] continuous vulcanizing machine operator for a pap smear test. (6) Breast cancer screening by mammogram: Code(s): Z12.31 - Encounter for screening mammogram for malignant neoplasm of breast Category: Medical Plan: She has never had mammogram. Mammogram ordered. (7) Laboratory tests ordered as part of a complete physical exam (CPE): Code(s): Z00.00 - Encounter for general adult medical examination without abnormal findings Category: Medical Plan: Fasting labs ordered as part of a complete physical exam. Advised to fast for at least 10 hours before getting labs drawn. May drink water Verbalized understanding and agreed with treatment plan. Orders: Orders Complete Blood Count Auto Diff Today Z00.00 - Encounter for general adult medical examination without abnormal findings Comprehensive [place]. Panel Fast Today Z00.00 - Encounter for general adult medical examination without abnormal findings Lipid Panel Today Z00.00 - Encounter for general adult medical examination without abnormal findings Microalbumin, Random (w Creat) Today Z00.00 - Encounter for general adult medical examination without abnormal findings UA CC w/rflx Micro + Cult Today Z00.00 - Encounter for general adult medical examination without abnormal findings MM screening mammo BI Today Z12.31 - Encounter for screening mammogram for malignant neoplasm of breast TDaP Immunization Today Z23 - Encounter for immunization TSH reflex Free T4 Today Z00.00 - Encounter for general adult medical examination without abnormal findings Vitamin D 25-OH Total Today Z00.00 - Encounter for general adult medical examination without abnormal findings Hemoglobin A1c Today Z00.00 - Encounter for general adult medical examination without abnormal findings Influenza [id number] Immunization Today Z23 - Encounter for immunization Referrals DOCUMENT MANAGEMENT TECHNICIAN Referral Z12.4 - Encounter for screening for malignant neoplasm of cervix
[2025-04-14 08:54] VITALS: BP 141/83; PULSE 71; RESP 16; TEMP 36.6; O2SAT 100; BMI 44.0
[2025-04-14 09:12] VITALS: BP 140/80
== END 2025-04-14 09:39 | disposition home or self-care (01) ==
LOC: HO.HMCFM 08:42
PROVIDERS: PCP Nurse Practitioner Family; Visit Provider Nurse Practitioner Family
DX: Z00.00 Encounter for general adult medical examination without abnormal findings (principal); I10 Essential (primary) hypertension; E66.01 Morbid (severe) obesity due to excess calories; Z68.41 Body mass index [BMI] 40.0-44.9, adult; M25.512 Pain in left shoulder; Z12.31 Encounter for screening mammogram for malignant neoplasm of breast; Z23 Encounter for immunization

== ENCOUNTER 2025-04-20 13:44 | Outpatient (AMB) | payer OTHER, SELFPAY ==
--- NOTE | 2025-04-20 13:48 | A.OFFPC_ITS ---
Vital Signs 04/20/25 13:51 Height 5 ft 4 in Weight 259 lb 8 oz BMI 44.5 BP 136/79 Blood Pressure Location Rt brachial Position Sitting Respiration 13 Pulse 107 H Pulse Source Pulse Oximeter Temp 97.7 F Temp Source Oral Pulse Oximetry (%) 97 Oxygen Delivery Method Room Air Intake Visit Reasons: Urgent Care Follow UP Intake Note: Follow up from urgent care. Entry Writer Required: No Allergies sulfamethoxazole (From [facility]) Allergy (Intermediate, Verified 04/20/25 14:06) itching, itchy mouth trimethoprim (From [facility]) Allergy (Intermediate, Verified 04/20/25 14:06) itching, itchy mouth Medication List - Last Reconciled 04/20/25 by Lottie Trevino CNP albuterol sulfate 90 mcg/actuation 2 puffs inhalation Q4-6H PRN amlodipine 10 mg PO DAILY 30 days cetirizine 10 mg PO DAILY PRN lisinopril 40 mg PO DAILY 30 days methocarbamol 750 mg PO TID PRN multivitamin (Daily Multi-Vitamin tablet) 1 tab PO DAILY Tobacco use date assessed: 04/20/25 Dental Screening Dental Screen Date: 04/20/25 Did you have a dental visit in the last 12 months?: Yes Did you have a dental problem in the last 6 months where you did not have access to dental care?: No Was dental information given to patient?: Patient has dentist HPI HPI Comments History of Present Illness Details 40-year-old female presents for review o f recent lab results. She complaints of ongoing intermittent stabbing pain between her left scapular and shoulder for the past 2 weeks. The pain intensifies with certain movements, interfering with ADLs and work duties. She was initially evaluated in urgent care and was prescribed methocarbamol which she completed without relief. She has been taking a leave twice daily. [facility] Medical History Back abscess Essential hypertension Surgical History History of removal of cyst [place] teeth extracted Family History Mother HTN (hypertension) Irregular heart beat Diabetes Father Heart attack Brother Brain cancer Paternal Grandfather Heart disease Paternal Grandmother Breast cancer Social History Household Members: Spouse Housing: House Alcohol intake: current Alcohol intake frequency: a few times a week Alcohol type: beer Patient Tobacco Use Status: Never used Tobacco e-Cigarette/Vaping Use: Never Used Second Hand Smoke Exposure: No service: No Current occupational status: employed Current occupation: [employer] Current occupational exposures/hazards: No Cognitive needs: No Hearing needs: No Vision needs: No Questionnaire PHQ-9 Over the last 2 weeks, how often have you been bothered by any of the following problems? 1. Little interest or pleasure in doing things: not at all 2. Feeling down, depressed, or hopeless: not at all 3. Trouble falling or staying asleep, or sleeping too much: not at all 4. Feeling tired or having little energy: not at all 5. Poor appetite or overeating: not at all 6. Feeling bad about yourself - or that you are a failure or have let yourself or your family down: not at all 7. Trouble concentrating on things, such as reading the newspaper or watching television: not at all 8. Moving or speaking so slowly that other people could have noticed. Or the opposite - being so fidgety or restless that you have been moving around a lot more than usual: not at all 9. Thoughts that you would be better off or of hurting yourself in some way: not at all Total score: 0 Depression Screening Interpretation: Negative Depression Screening Done: Yes 72802 - PHQ-9 Billing: Yes Source: Developed by Drs. Gold Espinosa, Naheed Carrasquillo, Joe Brush and colleagues, with an educational kelly from [employer]. Thrive Questionnaire Date Thrive assessed: 04/20/25 I am a: Patient What is your living situation today?: I have a steady place to live Within the past 12 months, did the food you bought not last and you didn't have the money to get more?: Never true Within the past 12 months, did you worry whether your food would run out before you got money to buy more?: Never true Do you have trouble paying for medicines?: No Do you have trouble getting transportation to medical appointments?: No Do you have trouble paying your heating and electricity bill?: No Do you have trouble taking care of your child, family member or friend?: No Do you have trouble with day-to-day activities such as bathing, preparing meals, shopping, managing finances, etc.?: No Are you currently unemployed and looking for a job?: No Are you interested in more education?: No Please select the resources that you would like help with: None Currently or been in a relationship where the following occur: No concerns repo rted THRIVE Score: 0 AUBREY-7 AMB Questionnaire AUBREY-7 Date AUBREY - 7 assessed: 04/20/25 Feeling nervous, anxious, or on edge: 0 = Not at all Not being able to stop or control worryin = Not at all Worrying too much about different things: 0 = Not at all Trouble relaxin = Not at all Being so restless that it is hard to sit still: 0 = Not at all Becoming easily annoyed or irritable: 0 = Not at all Feeling afraid as if something awful might happen: 0 = Not at all Total AUBREY-7 score (0-4 normal; 5-9 mild; 10-14 moderate; 15-21 severe): 0 Source: Developed by Drs. Gold Espinosa, Naheed Carrasquillo, Joe Brush and colleagues, with an educational kelly from [employer]. AUBREY-7 Assessment Billing AUBREY-7 Assessment Tool: AUBREY-7 Assessment 70597 Review of Systems Const Details: Const Denies chills, Denies fatigue, Denies fever(s), Denies headache(s) and Denies weakness ENT Denies dizziness and Denies headache(s) Card Denies chest pain, Denies lightheadedness, Denies dyspnea and Denies other (Palpitations) Resp Denies cough, Denies dyspnea, Denies wheezing and Denies other ( shortness of breath) GI Denies abdominal pain, Denies melena, Denies hematochezia, Denies change in bowel habits, Denies dyspepsia and Denies nausea Denies hematuria and Denies dysuria Musc Reports as per HPI Skin/Breast Denies rash, Denies unusual bruising and Denies wounds Neuro Denies abnormal gait, Denies dizziness, Denies headache(s), Denies memory loss, Denies numbness, Denies Sensory deficit (Neuro), Denies tingling and Denies weakness Endo Denies cold intolerance, Denies fatigue, Denies heat intolerance, Denies polydipsia and Denies polyuria Aller/Immun Denies wheezing Physical exam (Primary Care) Vital Signs: Last Vital Signs Temp 97.7 F 04/20/25 13:51 Pulse 107 H 04/20/25 13:51 Resp 13 04/20/25 13:51 BP 136/79 04/20/25 13:51 Pulse Ox 97 04/20/25 13:51 Oxygen Delivery Method Room Air 04/20/25 13:51 BMI result Body Mass Index 44.5 Tobacco/Smoking Status: Tobacco use Status Tobacco use date assessed 04/20/25 04/20/25 13:53 Patient Tobacco Use Status Never used Tobacco 04/20/25 13:53 e-Cigarette/Vaping Use Never Used 04/20/25 13:53 PHQ-9: PHQ-9 Score PHQ-9: Total score 0 04/20/25 14:10 Depression Screening Interpretation: Negative Thrive Assessment: Date of Thrive Assessment Date Thrive assessed 04/20/25 04/20/25 13:53 Currently or been in a relationship where the following occur: No concerns reported Const Other: General: no acute distress and well developed Nutritional Appearance: well nourished Orientation/consciousness: [facility]: Yes normocephalic and Yes atraumatic Eyes General: appearance normal, both eyes and all related structures Pupils: Equal, round and reactive pupils present EOM: EOMs intact bilaterally Resp Effort & Inspection: normal respiratory effort Auscultation: clear to auscultation bilaterally Cardio Rate: regular rate Rhythm: regular rhythm Heart sounds: S1 normal heart sound present, S2 normal heart sound present, no gallops, no murmurs and no rubs Musc Normal ROM of the left shoulder, tenderness to palpation to the left upper trapezius on the scapula, no overt injury or trauma Extrem General: Yes normal to inspection, No edema and No calf tenderness Skin General: warm and dry. Normal skin color. Normal skin turgor Neuro General: patient oriented x4, gait normal and no focal neuro deficit Psych Appearance: grossly normal Affect: normal affect Attitude: cooperative Thought process: Normal thought process present Coding Level of Care Code Est Pt Level 4 (10937) Diagnoses Hyperlipidemia E78.5 Vitamin D deficiency E55.9 Pre-diabetes R73.03 Strain of left trapezius muscle S46.812A Additional Codes AUBREY-7 Assessment Billing - AUBREY-7 Assessment Tool: AUBREY-7 Assessment 02111 ([id number]) PHQ-9 - 48201 - PHQ-9 Billing: Yes ([id number]) Assessment & Plan Assessment & Plan (1) Hyperlipidemia: Code(s): E78.5 - Hyperlipidemia, unspecified Category: Medical Plan: Recent triglycerides, total cholesterol, and LDL levels are elevated, 211, 256, and 157 respectively, previous levels about 60 months ago were 103, 187, and 131 respectively. Recent HDL is normal. Advised to limit foods high in saturated fat and avoid foods high in trans fat. Routine exercise encouraged. Fast for 10-12 hours, may drink water, and plan of the panel blood work a few days before next visit. Follow-up with PCP for transfer of care as planned. Return sooner with symptoms or concerns. Verbalized understanding and agreed with the plan. (2) Vitamin D deficiency: Code(s): E55.9 - Vitamin D deficiency, unspecified Category: Medical Plan: Recent vitamin-D level is slightly low, 28.5. Vitamin D3 25 mcg daily ordered; advised to take as prescribed. Repeat vitamin-D blood work before next visit. Verbalized understanding and agreed with the plan. (3) Pre-diabetes: Code(s): R73.03 - Prediabetes Category: Medical Plan: Recent fasting glucose is elevated, 117, A1c 6.0%. Routine exercise and healthy diet, including low carbs encouraged. Will recheck A1c in 3 months. Verbalized understanding and agreed with the plan. (4) Strain of left trapezius muscle: Code(s): S46.812A - Strain of other muscles, fascia and tendons at shoulder and upper arm level, left arm, initial encounter Category: Medical Plan: Normal ROM of the left shoulder, tenderness to palpation to the left upper trapezius on the scapula, no overt injury or trauma. Cyclobenzaprine as prescribed. Continue to take Aleve as needed. Warm/cool compresses encouraged. Referred to physical therapy. Work note given for light duty x1 week. Avoid sports or exercise until healed Follow-up with worsening or new symptoms. Verbalized understanding and agreed with the plan. Orders: Orders Lipid Panel 2 Months E78.5 - Hyperlipidemia, unspecified PT Evaluation and Treatment Today S46.705G - Strain of other muscles, fascia and tendons at shoulder and upper arm level, left arm, initial encounter Medications: New cholecalciferol (vitamin D3) 25 mcg PO DAILY 90 tabs 2RF 90 days cyclobenzaprine 10 mg PO TID PRN 30 tabs 0RF muscle spasm Changed From amlodipine 10 mg PO DAILY 30 days 30 tabs 0RF To amlodipine 10 mg PO DAILY 90 tabs 1RF 90 days From lisinopril 40 mg PO DAILY 30 days 30 tabs 0RF To lisinopril 40 mg PO DAILY 90 tabs 1RF 90 days Discontinued methocarbamol Discontinued Reason: Doctor's Order 750 mg PO TID PRN 14 tabs 0RF muscle spasm
[2025-04-20 13:51] VITALS: BP 136/79; PULSE 107; RESP 13; TEMP 36.5; O2SAT 97; BMI 44.5
== END 2025-04-20 14:27 | disposition home or self-care (01) ==
LOC: HO.HMCFM 13:45
PROVIDERS: PCP Nurse Practitioner Family; Visit Provider Nurse Practitioner Family
DX: E78.5 Hyperlipidemia, unspecified (principal); E55.9 Vitamin D deficiency, unspecified; R73.03 Prediabetes; S46.812A Strain of other muscles, fascia and tendons at shoulder and upper arm level, left arm, initial encounter

== ENCOUNTER → 2025-04-20 13:44 | Outpatient (BNVA) | payer OTHER, SELFPAY | PROVIDERS: PCP Nurse Practitioner Family; Visit Provider Nurse Practitioner Family | DX: S46.812A Strain of other muscles, fascia and tendons at shoulder and upper arm level, left arm, initial encounter (principal); E78.5 Hyperlipidemia, unspecified; E55.9 Vitamin D deficiency, unspecified; R73.03 Prediabetes | CPT/HCPCS: 96127 ==